=== PATIENT | female | born 1990 | race Caucasian/White ===

== ENCOUNTER 2024-04-10 09:38 | Outpatient (AMB) | payer OTHER, SELFPAY ==
[2024-04-10 09:57] VITALS: BP 132/86; PULSE 88
--- NOTE | 2024-04-10 09:57 | A.OFFVIS_ITS ---
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/ 2nd degree AV block Intake Note: New patient 2 nd degree AV Block c/o sob with most days with little exertion palpitations daily and some chest pain with stress Hospital Clinic Assistant Required: No Allergies oxcarbazepine Allergy (Mild, Verified 04/10/24 10:06) Unknown Medication List - Last Reconciled 04/10/24 by Sly Robbins MD lisinopril 10 mg PO DAILY lisinopril-hydrochlorothiazide 20-25 mg 1 tab PO DAILY metformin 500 mg PO BID testosterone cypionate 60 mg IM QWEEK venlafaxine ER 75 mg PO DAILY venlafaxine ER 150 mg PO DAILY HPI Comments Details: Q was referred here for abnormal finding on Holter monitor and they are seeking a 2nd opinion for cardiology. They have prior history of syncope, saying that this was diagnose in [place] as vasovagal syncope many years ago. They are having these symptoms of syncope since early years. No tilt-table test was performed for diagnosis. Patient describes these symptoms as feeling really unwell then having tunnel vision and then passing out associated with feeling warm and diaphoretic and has been told that they are pale. Patient was never had any seizure activity with it. Patient has been advise increase fluid intake. Currently as sleep apnea and using CPAP therapy. Recently having increasing symptoms of exertional shortness of breath which is concerning to them. Therefore had a Holter monitor which showed frequent sinus tachycardia, occasional PVCs and episodes of second-degree AV block during sleep hours. Patient was then referred to local cardiology but was not satisfied with the treatment and was looking for 2nd opinion. Since then patient continues to have exertional shortness of breath, no associated chest discomfort. Denies any orthopnea, PND, leg edema. He has not had any major syncopal episodes. Drinks about 100-120 oz of water. Has been diagnose with hypertension and recently after the Holter monitor finding metoprolol was discontinued and lisinopril was increased. They are taking a combination of lisinopril hydrochlorothiazide in the morning at 20-25 mg and 10 mg of lisinopril at nighttime. Patient is enthusiastic about losing weight. Denies any alcohol or caffeine use or any over the counter medications including stimulants. [facility] Medical History Sleep apnea Obesity HTN (hypertension) Surgical History Hx of oral surgery Family History Father No problems noted. Mother No problems noted. Social History Patient Tobacco Use Status: Former Tobacco user Review of Systems Const Denies chills, Denies daytime sleepiness, Denies fatigue, Denies fever(s), Denies frequent falls, Denies poor appetite, Denies snoring, Denies stops breathing during sleep, Denies weakness, Denies weight gain and Denies weight loss Eyes Denies loss of vision ENT Denies dizziness and Denies hearing loss Card Reports chest pain, Denies claudication, Denies leg edema, Denies lightheadedness, Reports palpitations, Reports dyspnea, Reports dyspnea on exertion and Reports orthopnea Resp Denies cough, Denies excessive phlegm production, Reports dyspnea, Reports dyspnea on exertion, Denies snoring and Denies wheezing GI Denies abdominal pain, Denies hematochezia, Denies change in bowel habits, Denies nausea and Denies vomiting Denies urinary frequency and Denies dysuria Musc Denies arthralgias, Denies muscle weakness, Denies numbness and Denies other (fr equent falls) Skin/Breast Denies nail changes and Denies rash Neuro Denies Abnormal speech present, Denies dizziness, Denies frequent falls, Denies loss of vision, Denies memory loss, Denies numbness and Denies weakness Psych Denies depression and Denies memory loss Endo Denies fatigue and Reports palpitations Sy/Lymph Reports easy bruising and Reports other (anemia) Aller/Immun Denies wheezing Physical Exam Vital Signs: Last Vital Signs Pulse 88 04/10/24 09:57 BP 132/86 04/10/24 09:57 Const General: cooperative, comfortable, no acute distress, alert and awake Nutritional Appearance: obese morbidly obese Orientation/consciousness: patient oriented x3 Limitations: no limitations HEENT Head: Yes normocephalic and Yes atraumatic Neck Neck: Yes trachea midline, Yes supple and Yes no JVD Resp Effort & Inspection: normal respiratory effort Auscultation: clear to auscultation bilaterally Cardio Jugular venous distension: no JVD Rate: regular rate Rhythm: regular rhythm Heart sounds: S1 normal heart sound present, S2 normal heart sound present, no click, no gallops, no murmurs and no rubs GI Inspection: Yes obesity Auscultation: normal bowel sounds Skin General skin exam: no rashes or lesions noted Neuro General: patient oriented x3 and no focal motor deficits Speech: No Abnormal speech present Extrem General: Yes no clubbing, cyanosis or edema Psych Appearance: grossly normal Office Procedures EKG Details: EKG shows normal sinus rhythm with sinus arrhythmia with incomplete right bundle-branch block with normal axis and normal intervals 82405-[id number], Complete Assessment & Plan Assessment & Plan (1) SOB (shortness of breath) on exertion: Code(s): R06.02 - Shortness of breath Category: Medical Plan: Shortness of breath on exertion with recent echocardiogram showing predominantly normal structure of the heart. Most likely related to restrictive pulmonary defect related to obesity. This was discussed with them. However will obtain a stress test to assess for both chronotropic competence as well as AV conduction with exercise and to assess for ischemia although less likely. This will be scheduled in near future. Will benefit significantly from weight loss program. We discussed various strategies. Consider medical weight loss program with GLP 1 antagonist (2) Syncope: Code(s): R55 - Syncope and collapse Category: Medical Plan: Longstanding history of syncope which is highly suggestive of either vasovagal syncope/related to postural orthostatic tachycardia syndrome. Given frequent sinus tachycardia POTS is likely. Mechanism of syncope needs to be determined as this will help with further treatment options. We discussed about orthostatic precautions. They are drinking enough water at this point time. Unfortunately can not prescribe any other therapy including midodrine or fludrocortisone given baseline history of hypertension. Also can not recommend increase salt intake. Potential treatment option could include Corlanor therapy. Currently competing hypertension which makes treatment very difficult I would discontinue hydrochlorothiazide which can potentiate both orthostatic as well as vasovagal syncope. Aggressive weight loss program needs to be pursued. Continue CPAP therapy. (3) Second degree AV block: Code(s): I44.1 - Atrioventricular block, second degree Category: Medical Plan: Second-degree AV block during sleep hours. Most likely related to inadequate CPAP therapy. Obtain ETT as above. Also metoprolol was discontinued and will follow-up 14 day Holter monitor to see if there is any significant improvement in her second-degree AV block. I do not think there is indication for pacemaker at this point time. Would obtain a CPAP titration study for adequacy of sleep apnea treatment. Will follow up in 2 months time, sooner p.r.n.. Orders: Orders CA stress test Today R06.02 - Shortness of breath RT PSG in-lab sleep titration Today G47.30 - Sleep apnea, unspecified ECG Tilt Table Test Today R55 - Syncope and collapse ECG 14 day holter monitor Today I44.1 - Atrioventricular block, second degree Medications: New lisinopril 20 mg PO DAILY 30 tabs 5RF Coding Level of Care Code New Pt Level 4 (74461) Complex EM visit Add On G2211 Diagnoses SOB (shortness of breath) on exertion R06.02 Syncope R55 Second degree AV block I44.1 CPT Codes EKG - CPT: 35535-[id number], Complete ([id number])
--- OUTSIDE RECORDS SUMMARY | 2024-04-15 07:04 | XMS_ITS ---
Author Organization [facility] Address [address] [place] [id number] Care Team Providers Care Correctional Probation Officer Name Role Phone Bahman Mtz Unavailable [phone] Allergies Allergen (clinical drug ingredient) Drug/Non Drug Allergy documented on EMR Reaction Allergy Type Onset Date Status Banana Flavor Unknown Drug Allergy Act oliver REASON FOR VISIT A1c Social History Sex Assigned At : Social History Observation Description Sex Assigned At Female Encounters Encounter Location Date Provider Diagnosis [address] [id number] 02/12/2024 Bahman Mtz Plan Of Treatment No Information Progress Notes * Gisele MCKEONDOB:1990 (33 yo F)Acc No.[id number]:02/12/2024 Patient:?Gislee MCKEON :1990???Age:33 Y???Sex:Female Address:[address] [place] [id number] Subjective: * Chief Complaints: * ???A1c * Medical History:? * Surgical History:? * Hospitalization/Major Diagno stic Procedure:? * Medications:? * Allergies:?Banana Flavor Objective: * Vitals:? * Physical Examination:? Assessment: Plan: * Treatment: * Procedure Codes:? * true * Date:? Generated for Liui zandra/Fahannag/eTransmitting on:?04/15/2024 07:04 AM EST
--- OUTSIDE RECORDS SUMMARY | 2024-04-15 07:04 | XMS_ITS ---
Author Organization [facility] Address [address] [place] [id number] Care Team Providers Care Acid Crane Operator Name Role Phone Bahman Mtz Unavailable [phone] Allergies Allergen (clinical drug ingredient) Drug/Non Drug Allergy documented on EMR Reaction Allergy Type Onset Date Status Banana Flavor Unknown Drug Allergy Act oliver REASON FOR VISIT GA Follow Medications Medication SIG (Take, Route, Frequency, Duration) Notes Start Date End Date Status [facility] Alcohol Prep Pads 70 % as directed transdermal clean vial and skin prior to injection weekly for 90 days 01/11/2023 Active Propranolol HCl 10 MG 1 tablet Orally On ce a day for 30 day(s) 40mg/day Not-Taking busPIRone HCl 15 MG 1 tablet Orally Twice a day Not-Taking Estradiol 10 MCG 1 tablet Vaginal Two times a Week for 90 days 02/25/2024 Active Testosterone Cypionate 200 MG/ML 0.4 ML Subcutaneous weekly 10/24/2023 Active hydroCHLOROthiazide 12.5 MG 1 capsule in the morning Orally Once a day for 30 day(s) Active Effexor XR 150 MG 1 capsule with food Orally Once a day for 30 day(s) 225mg per day Active BD Luer-Ganga Syringe 25G X 5/8 1 ML as directed SQ Once weekly as directed for 90 01/11/2023 Active BD [employer] - as directed as directed dispose needles once weekly for 90 days 01/11/2023 Active Wellbutrin 150 Active BD Disp Raritan 21G X 1-1/2 as directed for drawing up medication once weekly for drawing up medication once weekly for 90 days 01/11/2023 Active BD Luer-Ganga Syringe 25G X 5/8 1 ML as directed for weekly subcutaneous medication administration for 90 days 04/18/2023 Active Diclofenac Sodium 50 MG 1 tablet as need ed Orally Twice a day Active Lisinopril Active Venlafaxine HCl Acti ve Pregabalin 25 MG 1 capsule Orally Once a day 75mg 2 x day Active Metoprolol Succinate 25 MG 1 capsule Orally Once a day Active metFORMIN HCl 500 MG 1 tablet with a nish l Orally Once a day Active Social History Sex Assigned At : Social History Observation Description Sex Assigned At Female Vital Signs Blood pressure systolic 20 mm Hg 02/25/20 24 Blood pressure diastolic 10 mm Hg 024 Height 20 in 02/25/2024 Weight 10 lbs 02/25/2024 BMI 17.58 kg/m2 02/25/2024 Encounters Encounter Location Date Provider Diagnosis [facility] [address] [place], [place] [phone] 02/25/2024 Bahman Mtz Other gender identit y disorders F64.8 Assessments Encounter Date Diagnosis (ICD Code) Assessment Notes Treatment Notes Treatment Clinical Notes Section Notes 02/25/2024 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 3 months after dose change did med education for estradiol reviewed labs with patient and discussed importance of continuing to follow up with PCP for hyperglycemia/pr ediabetes, HLD and other concerns, client on metformin for prediabetes now. Spent 30 minutes doing the following: Chart Prep Obtaining/reviewi ng history Performing medically necessary exam Counseling/Coordi [facility] of Care Documenting the visit Educating the patient Ordering medication/test/p rocedures Interpretation of test performed by others Communication of test results Established Patient: [id number] 30 Minutes Plan Of Treatment Medication Medication Name Sig Start Date Stop Date Notes Estradiol 10 MCG 1 tablet Vaginal Two times a Week for 90 days 02/25/2024 Testosterone Cypionate 200 MG/ML 0.4 ML Subcutaneous weekly 10/24/2023 Treatment Notes Assessment Notes Other gender identity disorders will call when needs testosterone refill will continue current dose for now but ok to increase to 0.5 mL testosterone if desired, and if does so call to schedule f/u approx. 3 months after dose change did med education for estradiol reviewed labs with patient and discussed importance of continuing to follow up with PCP for hyperglycemia/prediabetes, HLD and other concerns, client on metformin for prediabetes now. Next Appt Details Follow Up: 1 Year,Glenn delaney n: f/u 1 year or 3 months after any dose increase Progress Notes * Gisele MCKEONDOB:1990 (33 yo F)Acc No.[id number]:02/25/2024 Patient:?Gisele MCKEON Provider:?Bahman Mtz CNM, ONEIL :1990???Age:33 Y???Sex:Female D ate:02/25/2024 Address:[address] [place], [place] [id number] Subjective: * Chief Complaints: * ???GAH Follow * HPI: ???Visit Narrative:?Reason for the visit:?GAH Follow Up.?Q is doing well, on a medical leave re. mental health concerns. Pending cardiology work up for concern for dysautonomia/POTS. happy overall on current dose. Amenorrhea, rare cramping thinks might be related to cycle. no spotting. Might be interested in a dose increase in the future. had recent labs. saw pelvic floor PT for back pain which was helpful, they recommended vaginal estradiol to prevent/treat tissue atrophy for which client currently asymptomatic (no genital irritation, pain, dysuria,etc.) and client would like to start this. last labs were a peak level. * Medical History:? 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 control:?sex does not risk .?Last menstrual period:?02/18/22.?Last pap smear date:?2021.?Menarche: ?Past the age of menarche:?Yes ?Age of menarche:?11 ???Periods:?Amen. with T.? * OB History:?Total pregnancies:?0.? * Surgical History:?Denies Pas t Surgical History * Hospitalization/Major Diagno stic Procedure:?Denies Past Hospitalization * Family History:? HBP- mom Paternal side- unknown Family hx of BR CA. * Social History:?Food Access:?Food Access?The Client's current access to food is?Secure Food Access ???Housing:?Housing?The client's current living situation is:?stable housing ???Relationships:?Relationships?Has the client experienced any of the following:?Client has never experienced harmful relationships ???Human Trafficking:?Human Trafficking?Experienced:?No ???Tobacco Use:?Tobacco Use?Do you/have you used tobacco??Yes, in the past ?When did you quit??/ quit a few years ago ???Drugs/Alcohol:?Drug/Alcohol Use?Do you or have you used drugs??Yes, currently ?By what route are you taking drugs? Please check all that apply:?Smoking ?Which drug(s) do you smoke??Marijuana, Other (please specify in notes) mushrooms ?Do you or have you used alcohol??Yes, currently not often ???Counseling Provided:?Counseling Provided?The client was counseled on the following topics at this visit:?Gender Affirming Hormones ?Please indicate the length of time, in minutes, that counseling was provided.?5 ?Counseling Was Provided By:?alma * Medications:?TakingMetoprolo l Succinate 25 MG Capsule ER 24 Hour Sprinkle 1 capsule Orally Once a day metFORMIN HCl 500 MG Tablet 1 tablet with a meal Orally Once a day Pregabalin 25 MG Capsule 1 capsule Orally Once a day , Notes to Pharmacist: 75mg 2 x dayBD Disp Raritan 21G X 1-1/2 Miscellaneous as directed for drawing up medication once weekly for drawing up medication once weekly BD Luer-Ganga Syringe 25G X 5/8 1 ML Miscellaneous as directed for weekly subcutaneous medication administration Diclofenac Sodium 50 MG Tablet Delayed Release 1 tablet as needed Orally Twice a day Lisinopril Venlafaxine HCl Wellbutrin , Notes to Pharmacist: 150hydroCHLOROthiazide 12.5 MG Capsule 1 capsule in the morning Orally Once a day Effexor XR 150 MG Capsule Extended Release 24 Hour 1 capsule with food Orally Once a day , Notes to Pharmacist: 225mg per dayBD Luer-Ganga Syringe 25G X 5/8 1 ML Miscellaneous as directed SQ Once weekly as directed BD [employer] - Miscellaneous as directed as directed dispose needles once weekly [facility] Alcohol Prep Pads 70 % Pad as directed transdermal clean vial and skin prior to injection weekly Testosterone Cypionate 200 MG/ML Solution 0.4 ML Subcutaneous weekly Taking Metoprolol Succinate 25 MG Capsule ER 24 Hour Sprinkle 1 capsule Orally Once a day Taking metFORMIN HCl 500 MG Tablet 1 tablet with a meal Orally Once a day Taking Pregabalin 25 MG Capsule 1 capsule Orally Once a day , Notes to Pharmacist: 75mg 2 x dayTaking BD Disp Raritan 21G X 1-1/2 Miscellaneous as directed for drawing up medication once weekly for drawing up medication once weekly Taking BD Luer-Ganga Syringe 25G X 5/8 1 ML Miscellaneous as directed for weekly subcutaneous medication administration Taking Diclofenac Sodium 50 MG Tablet Delayed Release 1 tablet as needed Orally Twice a day Taking Lisinopril Taking Venlafaxine HCl Taking Wellbutrin , Notes to Pharmacist: 150Taking hydroCHLOROthiazide 12.5 MG Capsule 1 capsule in the morning Orally Once a day Taking Effexor XR 150 MG Capsule Extended Release 24 Hour 1 capsule with food Orally Once a day , Notes to Pharmacist: 225mg per dayTaking BD Luer-Ganga Syringe 25G X 5/8 1 ML Miscellaneous as directed SQ Once weekly as directed Taking BD [employer] - Miscellaneous as directed as directed dispose needles once weekly Taking [facility]S Alcohol Prep Pads 70 % Pad as directed transdermal clean vial and skin prior to injection weekly Taking Testosterone Cypionate 200 MG/ML Solution 0.4 ML Subcutaneous weekly Not-Taking/PRNPropranolol HCl 10 MG Tablet 1 tablet Orally Once a day , Notes to Pharmacist: 40mg/daybusPIRone HCl 15 MG Tablet 1 tablet Orally Twice a day Medication List reviewed and reconciled with the patientNot-Taking/PRN Propranolol HCl 10 MG Tablet 1 tablet Orally Once a day , Notes to Pharmacist: 40mg/dayNot-Taking/PRN busPIRone HCl 15 MG Tablet 1 tablet Orally Twice a day Medication List reviewed and reconciled with the patient * Allergies:?Banana Flavorno[A llergies Verified] Objective: * Vitals:?BP:20/10mm Hg, Ht: 2 0 in, Wt:10lbs, BMI:17.58Index, Ht-cm: 50.8, Wt-k.54. * Physical Examination:?in no apparent distress audio only telehealth alert and oriented x 3. Assessment: * Assessment: 1.?Other gender identity dis orders - F64.8 (Primary)??? Spent 30 minutes doing the f ollowing: Chart Prep Obtaining/reviewing history Performing medically necessary exam Counseling/Coordination of Care Documenting the visit Educating the patient Ordering medication/test/procedures Interpretation of test performed by others Communication of test results Established Patient: 95046 30 Minutes Plan: * Treatment: * Procedure Codes:? * Follow Up:?1 Year,prn (Reaso n: f/u 1 year or 3 months after any dose increase) * Billing Information: * Visit Code:? 34372 Existing - Medium Complexity (IN USE). * Procedure Codes:? * Sign off status: Completed true * Provider:?Bahman Mtz CNM, ONEIL Date:?1 Generated for Nico de paz/Jcainto/Henny on:?04/15/2024 07:04 AM EST History and Physical Notes * HPI (History of Present Illness) Category Sub-Category Detail Notes Category Not es Visit Narrative Reason for the visit: [facility] Follow Up Q is doing well, on a medical leave re. mental health concerns. Pending cardiology work up for concern for dysautonomia/POTS. happy overall on current dose. Amenorrhea, rare cramping thinks might be related to cycle. no spotting. Might be interested in a dose increase in the future. had recent labs. saw pelvic floor PT for back pain which was helpful, they recommended vaginal estradiol to prevent/treat tissue atrophy for which client currently asymptomatic (no genital irritation, pain, dysuria,etc.) and client would like to start this. last labs were a peak level. Physical Examination Category Sub-Category Detail Notes Section Note s in no apparent distress audio only telehealth alert and oriented x 3
--- OUTSIDE RECORDS SUMMARY | 2024-04-15 07:05 | XMS_ITS | Patient Health Record ---
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 No serum gel received. HCV antibody alone does not differentiate between previously resolved infection and active infection. Equivocal and Reactive HCV antibody results should be followed up with an HCV RNA test to support the diagnosis of active HCV infection. Ct/GC INDIRA, Pharyngeal-[id number] Reviewed date:11/04/2023 05:50:50 PM Interpretation:negative/negative Performing Lab:[facility] [place], [address], [address], [place], Phone - [phone], Director [facility]/Report: Clinical Information:SRC:urine C. trachomatis, INDIRA, Pharyn Negative Negative N. gonorrhoeae, INDIRA, Pharyn Negative Negative Trich vag by INDIRA-[id number] Reviewed date:11/04/2023 05:49:16 PM Interpretation:negative Performing Lab:[facility] [place], [address], [address], [place], Phone - [phone], Director - [facility] Notes/Report: Clinical Information:SRC:urine Trich vag by INDIRA Negative Negative Chlamydia/GC Amplification-1 91128 Reviewed date:11/04/2023 05:50:37 PM Interpretation:negative/negative Performing Lab:[facility] [place], [address], [address], [place], Phone - [phone], Director [facility] Notes/Report: Clinical Information:SRC:urine Chlamydia trachomatis, INDIRA Negative Negative Neisseria gonorrhoeae, INDIRA Negative Negative HIV Ab/p24 Ag with Reflex-08 3935 Reviewed date:11/04/2023 05:54:16 PM Interpretation:TNP Performing Lab:[facility], [address] [place] [address], Phone - [phone], [facility] Notes/Report: Clinical Information:SRC:urine HIV Ab/p24 Ag Screen TNP Test no t performed. No serum gel received. T pallidum Screening [place] -[id number] Reviewed date:11/04/2023 05:53:35 PM Interpretation:TNP [facility], [address] [place] [address], Phone - [phone], Director O[place] PARaghu Notes/Report: Clinical Information:SRC:urine T pallidum Antibodies TNP Test n ot performed. No serum gel received. Testosterone, Total, LC/MS-0 28539 Reviewed date:11/04/2023 05:54:31 PM Interpretation: Performing Lab:[facility] [place], [address] [place] [address], Phone - [phone], Director Preethi Roth Notes/Report: Clinical Information:SRC:urine Testosterone, Total, LC/MS TNP T est not performed. No serum gel received. Hematocrit-[id number] Reviewed date:11/04/2023 05:54:37 PM Interpretation: Performing Lab:[facility], [address] [place] [address], Phone - [phone], [facility] Notes/Report: Clinical Information:SRC:urine Hematocrit TNP Test not perfor med. No lavender top tube submitted. No Lavender Received TNP Test not performed. No lavender top tube submitted. TEST: [id number] Hemoglobin A1c 120569 Hemoglobin 867345 Hematocrit No Serum Gel Received TNP Test not performed. No serum gel received. TEST: [id number] Testosterone, Total, LC/MS 478049 T pallidum Screening [place] 679859 HIV Ab/p24 Ag with Reflex [id number] HCV Antibody Hemoglobin-289402 Reviewed date:11/04/2023 05:54:33 PM Interpretation: Performing Lab:[facility] [address], Phone - [phone], Director - [place] Notes/Report: Clinical Information:SRC:urine Hemoglobin TNP Test not perfor med. No lavender top tube submitted. Hemoglobin B0f-[id number] Reviewed date:11/04/2023 05:52:52 PM Interpretation:TNP Performing Lab:[facility], Phone - [phone], Director - [place] Notes/Report: Clinical Information:SRC:urine Hemoglobin A1c TNP Test not performed. No lavender top tube submitted. . Prediabetes: 5.7 - 6.4 Diabetes: >6.4 Glycemic control for adults with diabetes: <7.0 Hematocrit-[id number] Reviewed date:02/12/2024 05:14:29 PM Interpretation:47.1 Performing Lab:[facility], [address] [place] [address], Phone - [phone], Director - [place] Notes/Report: Hematocrit 47.1 34.0-46.6 % Hemoglobin-[id number] Reviewed date:02/12/2024 05:14:47 PM Interpretation:15.0 Performing Lab:[facility] [address], Phone - [phone], Director - [place] Notes/Report: Hemoglobin 15.0 11.1-15.9 g/dL Hemoglobin A1c Reviewed date:02/12/2024 05:16:33 PM Interpretation:6.2 Performing Lab:[facility], [address] [place] [address], Phone - [phone], Director - Chandan Notes/Report: Hemoglobin A1c 6.2 Reference Range: [place] Diabetes Association (ADA) Guidelines: <5.7: Decreased risk for diabetes 5.7 - 6.4: Increased risk for diabetes >6.4: Ongoing Hyperglycemia of any cause <7.0: Glycemic control for adults with diabetes Estimated Average Glucose 131 Testosterone, Total, LC/MS-0 38466 Reviewed date:02/12/2024 05:16:43 PM Interpretation:252 Performing Lab:[facility], [facility], Phone - [phone], Director - [facility] Notes/Report: Testosterone, Total, LC/MS 252 This test was developed and its performance characteristics determined by 5 CUPS and some sugar. It has not been cleared or approved by the Food and Drug Administration. Reference Range: Adult Females Premenopausal 10 - 55 Postmenopausal 7 - 40 HCV Antibody-[id number] Reviewed date:02/21/2024 12:13:13 PM Interpretation:negative Performing Lab:[facility] [place], [address], [address], [place], Phone - [phone], Director - [facility] Notes/Report: Hep C Virus Ab Non Reactive Non Reactive HCV antibody alone does not differentiate between previously resolved infection and active infection. Equivocal and Reactive HCV antibody results should be followed up with an HCV RNA test to support the diagnosis of active HCV infection. T pallidum Screening [place] -[id number] Reviewed date:02/12/2024 05:20:17 PM Interpretation:negative Performing Lab:[facility], [address] [place] [address], Phone - [phone], Director - [facility] Notes/Report: T pallidum Antibodies Non Reactive Non Reactive HIV Ab/p24 Ag with Reflex-08 3935 Reviewed date:02/21/2024 12:14:37 PM Interpretation:negative Performing Lab:[facility] [place], [address] [facility], Phone - [phone], Director - [facility] Notes/Report: HIV Ab/p24 Ag Screen Non Reactive Non Reactive HIV-1/HIV-2 antibodies and HIV-1 p24 antigen were NOT detected. There is no laboratory evidence of HIV infection. HIV Negative Reason For Referral No Information Medications Medication SIG (Take, Route, Frequency, Duration) Notes Start Date End Date Status Pregabalin 25 MG 1 capsule Orally Once a day 75mg 2 x day Active [facility] Alcohol Prep Pads 70 % as directed transdermal clean vial and skin prior to injection weekly for 90 days 01/11/2023 Active BD Disp [place] 21G X 1-1/2 as directed for drawing up medication once weekly for drawing up medication once weekly for 90 days 01/11/2023 Active BD Luer-Ganga Syringe 25G X 5/8 1 ML as directed for weekly subcutaneous medication administration for 90 days 04/18/2023 Active Propranolol HCl 10 MG 1 tablet Orally On ce a day for 30 day(s) 40mg/day Not-Taking Diclofenac Sodium 50 MG 1 tablet as need ed Orally Twice a day Active hydroCHLOROthiazide 12.5 MG 1 capsule in the morning Orally Once a day for 30 day(s) Active Effexor XR 150 MG 1 capsule with food Orally Once a day for 30 day(s) 225mg per day Active Metoprolol Succinate 25 MG 1 capsule Orally Once a day Active BD Luer-Ganga Syringe 25G X 5/8 1 ML as directed SQ Once weekly as directed for 90 01/11/2023 Active metFORMIN HCl 500 MG 1 tablet with a nish l Orally Once a day Active BD [employer] - as directed as directed dispose needles once weekly for 90 days 01/11/2023 Active busPIRone HCl 15 MG 1 tablet Orally Twice a day Not-Taking Estradiol 10 MCG 1 tablet Vaginal Two times a Week for 90 days 02/25/2024 Active Lisinopril Active Venlafaxine HCl Acti ve Testosterone Cypionate 200 MG/ML 0.4 ML Subcutaneous weekly 10/24/2023 Active Wellbutrin 150 Active Social History Sex Assigned At : Social History Observation Description Sex Assigned At Female Problems Problem Type SNOMED Code ICD Code Onset Dates Problem Status W/U Status Risk Notes Problem 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) Other gender identity disorders (F64.8) Active confirmed Problem Gender identity disorder (77780948) Gender identity disorder, 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 Vital Signs Blood pressure diastolic 10 mm Hg 02/25/2024 Height 20 in 02/25/2024 Blood pressure systolic 20 mm Hg 02/25/2024 Weight 10 lbs 02/25/2024 BMI 17.58 kg/m2 02/25/2024 Encounters Encounter Location Date Provider Diagnosis [facility] [address] [facility] [address] [place] [id number] 04/18/2023 Janay Ramirez Gender identity disorder, unspecified F64.9 and Hormone replacement therapy Z79.890 [facility] [address] [place] [address] [place] [address] [id number] 10/11/2023 Bahman Bibi Endocrine disorder, unspecified E34.9 ; HIV Screening Z11.4 ; STI Screening Z11.3 ; Contact with and (suspected) exposure to potentially hazardous body fluids Z77.21 ; Chlamydia Screening Z11.3 and Other problems related to lifestyle Z72.89 [facility] [address] [place], [place] [id number] 02/25/2024 Bahman Mtz Other gender identity disorders F64.[address] [id number] 04/18/2023 Janay Ramirez [facility] [address] [facility] [address] [place], [place] [id number] 10/24/2023 Bahman Mtz [address] [id number] 11/04/2023 Bahman Mtz Hormone replacement therapy Z79.890 ; Encounter for screening for other viral diseases Z11.59 ; STI Screening Z11.3 and Endocrine disorder, unspecified E34.[address] [id number] 02/12/2024 Bahman Mtz Assessments Encounter Date Diagnosis (ICD Code) Assessment Notes Treatment Notes Treatment Clinical Notes Section Notes 04/18/2023 Gender identity disorder, unspecified (ICD-10 - F64.9) Need 2 out of 3 Sections from A-C Section B) Data (at least one of the following categories in this section) Category 1: (Choose 2 of the following): Order unique tests Section C) Risk Document low risk of morbidity/mortali ty 10/11/2023 Endocrine disorder, unspecified (ICD-10 - E34.9) 10/11/2023 HIV Screening (ICD-10 - Z11.4) 11/04/2023 Hormone replacement therapy (ICD-10 - Z79.890) 02/25/2024 Other gender identity disorders (ICD-10 - [...] continuing to follow up with PCP for hyperglycemia/p rediabetes, HLD and other concerns, client on metformin for prediabetes now. Spent 30 minutes doing the following: Chart Prep Obtaining/reviewi ng history Performing medically necessary exam Counseling/Coordi nation of Care Documenting the visit Educating the patient Ordering medication/test/p rocedures Interpretation of test performed by others Communication of test results Established Patient: 63531 30 Minutes 11/04/2023 Encounter for screening for other viral diseases (ICD-10 - Z11.59) 10/11/2023 STI Screening (ICD-10 - Z11.3) 04/18/2023 Hormone replacement therapy (ICD-10 - Z79.890) Discussed follow up options, pt prefers routine f/u visit in 6 mos. Will transition to yearly labs now so no routine labs needed at follow up appointment. Advised to monitor site reactions and call for evaluation if symptoms persist or worsen. Need 2 out of 3 Sections from A-C Section B) Data (at least one of the following categories in this section) Category 1: (Choose 2 of the following): Order unique tests Section C) Risk Document low risk of morbidity/mortali ty 10/11/2023 Contact with and (suspected) exposure to potentially hazardous body fluids (ICD-10 - Z77.21) 11/04/2023 STI Screening (ICD-10 - Z11.3) 10/11/2023 Chlamydia Screening (ICD-10 - Z11.3) 11/04/2023 Endocrine disorder, unspecified (ICD-10 - E34.9) 10/11/2023 Other problems related to lifestyle (ICD-10 - Z72.89) Plan Of Treatment Pending Test Test Name Order Date ALT (SGPT) 03/20/2022 AST (SGOT) 03/20/2022 HEMOGLOBIN AND HEMATOCRIT 03/20/2022 TESTOSTERONE, TOTAL (MALES > 15 YRS) Insurance Providers Payer Name Payer Address Payer Phone Subscriber Number Group Number Insured Name Patient Relationship to Insured Coverage Start Date Coverage End Date [employer] ATTN [employer] CLAIMS DEPT [address] [facility], [place] [address] [id number] Gisele Wright Self - patient is the insured Medical (General) History Medical History History ICD Code Mental Health Anxiety and Depression- me ds and therapy. Feeling stable Breast lump- imaging to be done . Benign per clt CPTSD HBP- newly on meds as of Abn HgbA1C 5.9%, Abn lipid panel- PCP to follow up Back pain as of 10/15/2022, wondering if related to weight distribution Diabetes Weight concerns Migraines Surgical History Surgery Date(Month/Year)
--- OUTSIDE RECORDS SUMMARY | 2024-04-15 07:05 | XMS_ITS ---
Author Organization [facility] Address [address] [place] [phone] Care Team Providers Care Patient Financial Counselor Name Role Phone Bahman Mtz Unavailable [phone] REASON FOR VISIT lab follow up Social History Sex Assigned At : Social History Observation Description Sex Assigned At Female Encounters Encounter Location Date Provider Diagnosis [address] [id number] 11/04/2023 Bahman Mtz Hormone replacement therapy Z79.890 ; Encounter for screening for other viral diseases Z11.59 ; STI Screening Z11.3 and Endocrine disorder, unspecified E34.9 Assessments Encounter Date Diagnosis (ICD Code) Assessment Notes Treatment Notes Treatment Clinical Notes Section Notes 11/04/2023 Hormone replacement therapy (ICD-10 - Z79.890) 11/04/2023 Encounter for screening for other viral diseases (ICD-10 - Z11.59) 11/04/2023 STI Screening (ICD-10 - Z11.3) 11/04/2023 Endocrine disorder, unspecified (ICD-10 - E34.9) Plan Of Treatment No Information Progress Notes * MIKEAgueda DAVENPORTcelesteDOB:1990 (33 yo F)Acc No.[id number]:11/04/2023 Patient:?Gisele MCKEON :1990???Age:33 Y???Sex:Female Address:[address] [place] [place] [address], [id number] Subjective: * Chief Complaints: * ???Lab follow up * Medical History:? * Surgical History:? * Hospitalization/Major Diagno stic Procedure:? * Medications:? Objective: * Vitals:? * Physical Examination:? Assessment: * Assessment: 1.?Hormone replacement thera py - Z79.890???2.?Encounter for screening for other viral diseases - Z11.59???3.?STI Screening - Z11.3???4.?Endocrine disorder, unspecified - E34.9??? Plan: * Treatment: ?LAB: Hemoglobin-898097 (Ordered for 11/05/2023) (Collection Date & Time - 01/27/2024 12:41 PM)* normal on testosterone ?LAB: Hematocrit-469403 (Ordered for 11/05/2023) (Collection Date & Time - 01/27/2024 12:41 PM)* normal on testosterone 2.?Encounter for screening for other viral diseases?LAB: HIV Ab/p24 Ag with Reflex-656380 (Ordered for 11/05/2023) (Collection Date & Time - 01/27/2024 12:41 PM) ?LAB: T pallidum Screening [place]-754959 (Ordered for 11/05/2023) (Collection Date & Time - 01/27/2024 12:41 PM) ?LAB: HCV Antibody-[id number] (Ordered for 11/05/2023) (Collection Date & Time - 01/27/2024 12:41 PM) ?LAB: Testosterone, Total, LC/MS-262388 (Ordered for 11/05/2023) (Collection Date & Time - 01/27/2024 12:41 PM) ?LAB: Hemoglobin A1c (Ordered for 11/05/2023) (Collection Date & Time - 01/27/2024 12:41 PM)* prediabetes range/elevated b lood sugar, will call to discuss ?LAB: Hemoglobin-282981 (Ordered for 11/05/2023) (Collection Date & Time - 01/27/2024 12:41 PM)* normal on testosterone ?LAB: Hematocrit-025186 (Ordered for 11/05/2023) (Collection Date & Time - 01/27/2024 12:41 PM)* normal on testosterone 3.?STI Screening?LAB: HIV Ab/p24 Ag with Reflex-[id number] (Ordered for 11/05/2023) (Collection Date & Time - 01/27/2024 12:41 PM) ?LAB: T pallidum Screening [place]-943363 (Ordered for 11/05/2023) (Collection Date & Time - 01/27/2024 12:41 PM) ?LAB: HCV Antibody-712709 (Ordered for 11/05/2023) (Collection Date & Time - 01/27/2024 12:41 PM) ?LAB: Testosterone, Total, LC/MS-092148 (Ordered for 11/05/2023) (Collection Date & Time - 01/27/2024 12:41 PM) ?LAB: Hemoglobin A1c (Ordered for 11/05/2023) (Collection Date & Time - 01/27/2024 12:41 PM)* prediabetes range/elevated b lood sugar, will call to discuss ?LAB: Hemoglobin-988117 (Ordered for 11/05/2023) (Collection Date & Time - 01/27/2024 12:41 PM)* normal on testosterone ?LAB: Hematocrit-268380 (Ordered for 11/05/2023) (Collection Date & Time - 01/27/2024 12:41 PM)* normal on testosterone 4.?Endocrine disorder, unspecified?LAB: HIV Ab/p24 Ag with Reflex-561493 (Ordered for 11/05/2023) (Collection Date & Time - 01/27/2024 12:41 PM) ?LAB: T pallidum Screening [place]-198225 (Ordered for 11/05/2023) (Collection Date & Time - 01/27/2024 12:41 PM) ?LAB: HCV Antibody-154040 (Ordered for 11/05/2023) (Collection Date & Time - 01/27/2024 12:41 PM) ?LAB: Testosterone, Total, LC/MS-704296 (Ordered for 11/05/2023) (Collection Date & Time - 01/27/2024 12:41 PM) ?LAB: Hemoglobin A1c (Ordered for 11/05/2023) (Collection Date & Time - 01/27/2024 12:41 PM)* prediabetes range/elevated b lood sugar, will call to discuss ?LAB: Hemoglobin-377221 (Ordered for 11/05/2023) (Collection Date & Time - 01/27/2024 12:41 PM)* normal on testosterone ?LAB: Hematocrit-561853 (Ordered for 11/05/2023) (Collection Date & Time - 01/27/2024 12:41 PM)* normal on testosterone * Procedure Codes:? * true * Date:? Generated for Nico de paz/Jacinto/Breasmitting on:?04/15/2024 07:04 AM EST
== END 2024-04-10 10:41 | disposition home or self-care (01) ==
PROVIDERS: PCP Family Medicine; Visit Provider Internal Medicine Cardiovascular Disease
DX: R06.02 Shortness of breath (principal); R55 Syncope and collapse; I44.1 Atrioventricular block, second degree
CPT/HCPCS: 93010; 99204; G2211

== ENCOUNTER → 2024-04-10 09:38 | Outpatient (BNVA) | payer OTHER, SELFPAY | PROVIDERS: PCP Family Medicine; Visit Provider Internal Medicine Cardiovascular Disease | DX: I44.1 Atrioventricular block, second degree (principal); I10 Essential (primary) hypertension; R06.02 Shortness of breath; R55 Syncope and collapse; G47.30 Sleep apnea, unspecified | CPT/HCPCS: 93005 ==

== ENCOUNTER → 2024-04-27 10:16 | Outpatient (REF) | payer OTHER, SELFPAY ==
--- NOTE | 2024-04-27 12:15 | CA_ITS ---
Acquisition Time: 2024-04-27 10:32:03 Total Exercise Time: 00:05:13 Test Indications: SECOND DEGREE AV BLOCK, SOB Medications: SEE H Protocol: CROW Max HR: 169 BPM 90% of Pred: 187 BPM Max BP: 190/040 mmHG Max Work Load: 7.0 METS Exercise Stress Test with exercise 5 mins 13 secs of Crow Protocol, achieving 87% MPHR, with reports of severe SOB, no chest discomfort, without any arrythmias, with normotensive response to exercise. Without EKG changes meeting criteria for ischemia. In recovery, breathing returned to baseline slowly. Test reviewed with Dr. Maldonado. Test performed by Trina Lobo NP and Rivas Pisano NP Referred By: Sly Robbins Overread By: TRINA LOBO
== END ==
LOC: HO.CARD 10:16
PROVIDERS: PCP Family Medicine; Visit Provider Internal Medicine Cardiovascular Disease
DX: R06.02 Shortness of breath (principal)
CPT/HCPCS: 93017

== ENCOUNTER → 2024-04-27 12:15 | Outpatient (BNV) | payer OTHER, SELFPAY | PROVIDERS: PCP Family Medicine; Visit Provider Nurse Practitioner Family | DX: R06.02 Shortness of breath (principal); I44.1 Atrioventricular block, second degree | CPT/HCPCS: 93016; 93018 ==

== ENCOUNTER → 2024-04-30 20:30 | Outpatient (REF) | payer OTHER, SELFPAY | LOC: HO.SL 20:30 | PROVIDERS: PCP Family Medicine; Visit Provider Internal Medicine Cardiovascular Disease | DX: G47.33 Obstructive sleep apnea (adult) (pediatric) (principal); G47.61 Periodic limb movement disorder | CPT/HCPCS: 95811 ==

== ENCOUNTER → 2024-04-30 20:56 | Outpatient (BNV) | payer OTHER, SELFPAY | PROVIDERS: PCP Family Medicine; Visit Provider Psychiatry & Neurology Neurology | DX: G47.33 Obstructive sleep apnea (adult) (pediatric) (principal) | CPT/HCPCS: 95811 ==

== ENCOUNTER → 2024-05-01 07:13 | Outpatient (REF) | payer OTHER, SELFPAY | LOC: HO.CARD 07:13 | PROVIDERS: PCP Family Medicine; Visit Provider Internal Medicine Cardiovascular Disease | DX: I44.1 Atrioventricular block, second degree (principal) | CPT/HCPCS: 93246 ==

== ENCOUNTER → 2024-05-01 07:16 | Outpatient (BNV) | payer OTHER, SELFPAY | PROVIDERS: PCP Family Medicine; Visit Provider Internal Medicine Cardiovascular Disease | DX: I44.1 Atrioventricular block, second degree (principal) | CPT/HCPCS: 93244 ==

== ENCOUNTER 2024-07-07 12:22 | Outpatient (AMB) | payer OTHER, SELFPAY ==
[2024-07-07 12:32] VITALS: BP 130/80; PULSE 68
--- NOTE | 2024-07-07 12:32 | A.OFFVIS_ITS ---
Vital Signs 07/07/24 12:32 Height 5 ft 6 in BMI Reason not done Patient refused/unable BP 130/80 Blood Pressure Location Lt brachial Position Sitting Pulse 68 Intake Visit Reasons: 3 mth-tilt,holter,ett Intake Note: 3 month follow-up holter, ett and tilt table test feeling the same c/o palpitations and dizziness Chief [employer] Required: No Allergies oxcarbazepine Allergy (Mild, Verified 04/10/24 10:06) Unknown Medication List - Last Reconciled 07/07/24 by Sly Robbins MD aripiprazole (Abilify) 5 mg PO DAILY lisinopril 10 mg PO DAILY lisinopril 20 mg PO DAILY metformin 500 mg PO BID testosterone cypionate 60 mg IM QWEEK venlafaxine ER 75 mg PO DAILY venlafaxine ER 150 mg PO DAILY HPI Comments Details: Q comes for follow-up. He says stress test was within normal limits although with reduced exercise capacity. T[facility]table test done at [facility] did not show any evidence of neurocardiogenic syncope. However there was no provocative m easures performed. Holter monitor showed baseline normal sinus rhythm average heart rate of 81 beats per minute without significant tachycardia. Patient marked the counter 3 times which correlated with sinus rhythm. 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 Patient said that they were awake at that time. Patient continues to be very emotional and says that continues to have symptoms of rapid heart rate climbing a flight of stairs and also episodes of syncope. Very bothered by the symptoms and says that can not exercise. Has increased fluid [facility] Medical History Sleep apnea Obesity HTN (hypertension) Surgical History Hx of oral surgery Family History Father No problems noted. Mother No problems noted. Social History Patient Tobacco Use Status: Former Tobacco user Review of Systems Const Denies chills, Denies fatigue, Denies fever(s), Denies frequent falls, Denies weakness, Denies weight gain and Denies weight loss ENT Reports dizziness Card Reports chest pain, Denies leg edema, Reports lightheadedness, Reports palpitations, Denies dyspnea, Denies dyspnea on exertion, Denies orthopnea and Denies other (loss of consciousness) Resp Denies cough, Denies dyspnea and Denies dyspnea on exertion GI Denies hematochezia and Denies change in stool character Musc Denies abnormal gait, Denies muscle weakness, Denies numbness, Denies radiating pain into limb and Denies tingling Neuro Denies Abnormal speech present, Denies abnormal gait, Reports dizziness, Denies frequent falls, Denies numbness, Denies tingling and Denies weakness Endo Denies fatigue and Reports palpitations Physical Exam Vital Signs: Last Vital Signs Pulse 68 07/07/24 12:32 BP 130/80 07/07/24 12:32 Const General: cooperative, comfortable, no acute distress, alert and awake Nutritional Appearance: obese morbidly obese Orientation/consciousness: patient oriented x3 Limitations: no limitations HEENT Head: Yes normocephalic and Yes atraumatic Neck Neck: Yes trachea midline, Yes supple and Yes no JVD Resp Effort & Inspection: normal respiratory effort Auscultation: clear to auscultation bilaterally Cardio Jugular venous distension: no JVD Rate: regular rate Rhythm: regular rhythm Heart sounds: S1 normal heart sound present, S2 normal heart sound present, no click, no gallops, no murmurs and no rubs GI Inspection: Yes obesity Auscultation: normal bowel sounds Skin General skin exam: no rashes or lesions noted Neuro General: patient oriented x3 and no focal motor deficits Speech: No Abnormal speech present Extrem General: Yes no clubbing, cyanosis or edema Psych Appearance: grossly normal Assessment & Plan Assessment & Plan (1) Syncope: Code(s): R55 - Syncope and collapse Category: Medical Plan: Patient continues to have episode of syncope with normal workup by Holter monitor and by prior echocardiogram. Stress test is within normal limits altho ugh with reduced exercise capacity. Discussed about importance of improving exercise capacity to improve long-term outcome. Syncope still not clear and tilt-table test was negative for neurocardiogenic syncope or orthostatic hypotension. Although I think this tilt-table test was suboptimal. Noted 1 episode of Mobitz type 1 second-degree AV block which is benign and not a cause for syncope and was discussed in details with the patient. Would require further workup and given recurrent episodes I think would benefit from implantable loop recorder placement as they did not tolerate external patch monitors due to skin reaction. Advised to maintain adequate hydration. Further treatment based on the findings of the implantable loop recorder. Discussed about various different types of exercise that can be performed, mostly supine or sitting exercises. Risks, benefits, alternatives were discussed in details Will follow-up after implantable loop recorder placement Coding Level of Care Code Est Pt Level 4 (78385) Complex EM visit Add On G2211 Diagnoses Syncope R55
--- OUTSIDE RECORDS SUMMARY | 2024-07-07 15:24 | XMS_ITS | Data Portability ---
Author Organization [facility], [employer] Address [address] [place] [address] Care Team Providers Care Horticultural Farmer Name Role Phone GIL DORSEY Primary Care Provider [phone] GIL DORSEY Referring Provider Assessment Encounter Date Assessment Date Assessment LastModified by Organization Details LastModified Time 08/25/2020 08/25/2020 Patient presents with left heel pain with significant findings including: Pain walking after being sedentary, pain while ambulating without shoes. Based on the history, physical exam, and prior diagnostic tests/treatments , I recommend stretching exercises at home, proper shoegear. Discussed treatment plan and orders with patient as indicated below. A thorough biomechanical exam was performed today. Patient presents complaining of flat feet. Based on history, physical exam, and previous treatments, the patient has been educated extensively on flat feet, shoegear, supports and stretching exercises. Discussed treatment plan and instructions with patient. A thorough biomechanical exam was performed today. Not available 08/25/2020 14:54:38 Plan of Treatment Reminders Order Date Submit Date Provider Last Modified By Organization Details Last Modified Time Details Appointments None record ed. Lab None record ed. Referral None record ed. Procedures None record ed. Surgeries None record ed. Imaging None record ed. Medication Orders None record ed. Patient TargetsNo targets recorded. Patient Instructions Encounter Date Encounter Id Patient Instructions Last Modified By Organization Details Last Modified Time 08/25/2020 [id number] heel pain: care instructions alyce Not available 08/28/2020 17:23:36 flatfoot: care instructions alyce Not available 08/28/2020 17:23:37 The patient was given stretching instructions verbally and has been educated to start stretching, strengthening and conditioning the lower extremity. A handout describing the stretches and Theraband were dispensed to the patient today. The patient was dispensed a pair of Powerstep Pro insoles. They were fitted to the patient today and the patient has been educated about a break-in period of time. The patient has been educated to follo? w -up for serial x-rays in 1 2 3 days weeks. The patient has been educated that a copy of these notes will be forwarded to the harmony? e nts PCP. Not available 08/25/2020 15:03:31 Reason for Referral None Reported. Problems Name Problem SNOMED Code Status Onset Date Resolution Date Notes Provider Name and Address Organization Details Recorded Time Congenital pes planus 12331605 [facility] 0[facility] Heel pain 4646575 Active [facility] 14:51:04 Problem Notes None recorded. Procedures Surgical History Date Name Laterality Status Provider Name and Address Organization Details Recorded Time [facility]/25[facility] 14:51:27 Imaging Results None recorded. Procedure Notes None recorded. Medical Equipment None Reported. Allergies Allergen ID Allergen Name Allergen Category Reaction Reaction Severity Criticality Documentation Date Start Date Code Code System Note Provider Name and Address Organization Details Recorded Time 5427 banana extract food,medi cation Not available Not available Not available 08/25/2020 72767 9 RxNorm [facility] 14:50:14 Medications Name Sig Start Date Stop Date Status Note LastModified by Organization Details LastModified Time citalopram 40 mg tablet TAKE 1 TABLET BY MOUTH EVERY DAY active Not Available Not Available No t Available COVID-19 test specimen collection TEST DIRECTED active Not Available Not Available No t Available Vitals Date Recorded Body height Body mass index (BMI) Body weight Provider Name and Address Organization Details Last Updated DateTime 08/25/2020 165.1 cm 49.9 kg/m2 921689.71 g [facility] 08/25/2020 14:50:05 Social History None recorded. Functional Status None recorded. Mental Status None recorded. Family History Nothing Reported. Medical History Condition Response Gout N Eye problems N Respiratory Disease N Artificial Joints N Angina N Lung Disease N Pacemaker N Anemia N Edema N Psychiatric Disorder N Back Pain N Deep Vein Thrombosis N Stomach Ulcers N Varicose Veins N Diabetes N Bleeding Disorder N Arthritis N Blood Clot N AIDS/HIV N Ear Problems N Cancer N Stroke N Asthma N Leg or Foot Ulcers N Thyroid disease N Shortness of breath N Substance Abuse N Peripheral Vascular Disease N Hepatitis N Liver Disease N Heart Disease N Rheumatoid Arthritis N Pulmonary Embolism N Headaches N Foot Deformity N Fibromyalgia N Dialysis N Hypertension N Osteoporosis N Kidney Disease N Gynecological HistoryNo gynecological history recorded. Obstetrics History GPAL:G 0 P 0 0 0 0 Past Encounters Encounter ID Performer Location Encounter Start Date Encounter Closed Date Diagnosis/Indication Diagnosis SNOMED-CT Code Diagnosis ICD10 Code Diagnosis Note [id number] Gil Dorsey DPM MAIN OFFICE [address] [place] [phone] 08/25/2020 14:41:05 08/25/2020 15:09:59 Plantar fasciitis 924130750 M72.2 Pain in right foot 75958 75195 79957 M79.671 Walking di fficulty due to ankle and foot 632973128 R26.2 Tibialis p osterior tendinitis 101598653 M76.821 Tibialis a nterior tendinitis 646050231 M76.811 Health Concerns Section Related Observation LastModified by Organization Detai ls LastModified Time None Recorded Concern Status LastModified by Organization Details LastModified Time None Recorded Advance Directives Directive None Recorded Payers Encounter Date Sequence Insurance Name Policy Number Policy Steele Covered Member ID Steele Member ID Guarantor Name 08/25/2020 1 [place] [facility] [place]) [id number] Gisele Wright [id number] Gisele Wright Notes Date Note Type Note Provider Name and Address Organization Details Recorded Time 08/25/2020 text/html Heel PainReporte d bypatient.Location :left plantar Quality:throbbing; deep; frequent Severity:moderate Duration:2 months Timing:chronic Context:difficulty finding comfortable shoes Alleviating Factors:limited weight bearing; rest; ice; sitting with feet elevated Aggravating Factors:weight bearing; exercise Associated Symptoms:no redness; no fever; no chills Previous Surgery:none Prior Imaging:none Previous Injections:none Previous Treatment:none Work Related:no Working:noPodiatry FootReported bypatient.Location :bilateral Quality:constant Severity:moderate Duration:continuou s since onset Timing:chronic Context:cannot identify Alleviating Factors:rest Aggravating Factors:walking; weight bearing Associated Symptoms:aching Previous Surgery:none Prior Imaging:none Previous Injections:none Previous Treatments:none The patient presents with plantar fasciitis of the {{right left* bila teral}} foot. The patient presents to the office today with a CC of a {{flexible* rigid} } flatfoot deformity. Gil Dorsey DPM [address] [place] [address] B, [place], [address], [facility] 08/28/2020 17:23:40 OBGyn Episode No OBEpisode recorded.
--- OUTSIDE RECORDS SUMMARY | 2024-07-07 15:24 | XMS_ITS ---
Author Organization [facility] Address [address] [place] [phone] Care Team Providers Care Software Solutions Architect Name Role Phone Bahman Mtz Unavailable [phone] Allergies Allergen (clinical drug ingredient) Drug/Non Drug [...] 01/11/2023 Active Wellbutrin 150 Active BD Disp Leflore 21G X 1-1/2 as directed for drawing [...] 02/25/2024 Encounters Encounter Location Date Provider Diagnosis [place] [facility] [address] [place], [place] [phone] 02/25/2024 Bahman Mtz Other gender identit y [...] ng history Performing medically necessary exam Counseling/Coordi [facility] of Care Documenting the visit Educating the patient Ordering medication/test/p rocedures Interpretation of test performed by others Communication of test results Established Patient: [id number] 30 Minutes Plan Of Treatment Medication Medication [...] Notes * Gisele MCKEONDOB:1990 (33 yo F)Acc No.[id number]:02/25/2024 Patient:?Gisele MCKEON Provider:?Bahman Mtz CNM, ONEIL :1990???Age:33 Y???Sex:Female D ate:02/25/2024 Address:[address] [place], [place] [phone] Subjective: * Chief Complaints: * ???GAH Follow [...] a peak level. * Medical History:? * Dry Roller History:? control:?sex does not risk .?Last menstrual [...] to Pharmacist: 75mg 2 x dayBD Disp Leflore 21G X 1-1/2 Miscellaneous as directed for [...] Pharmacist: 75mg 2 x dayTaking BD Disp Leflore 21G X 1-1/2 Miscellaneous as directed for [...] others Communication of test results Established Patient: [id number] 30 Minutes Plan: * Treatment: * Procedure Codes:? * Follow Up:?1 Year,prn (Reaso n: f/u 1 year or 3 months after any dose increase) * Billing Information: * Visit Code:? 64215 Existing - Medium Complexity (IN USE). * Procedure Codes:? * Sign off status: Completed true * Provider:?Bahman Mtz CNM, ONEIL Date:?1 Generated for Nico de paz/Jacinto/Henny on:?07/07/2024 03:24 PM EST History and Physical Notes * HPI (History of Present Illness) Category Sub-Category Detail Notes Category Not es Visit Narrative Reason for the visit: [facility] Follow Up Q is doing well, on [...]
--- OUTSIDE RECORDS SUMMARY | 2024-07-07 15:24 | XMS_ITS | Clinical Summary ---
Author Organization [facility] Address [address] [place] [phone] Phone Care Team Providers Care Headend Technician Name Role Phone Physician, No Pcp Primary Care Provider Unavaila ble Social History Tobacco Use Types Packs/Day Years Used Date Smoking Tobacco: Never Assessed Comments Unknown Sex and Gender Information Value Date Recorded Sex Assigned at Not on file Legal Sex Female 2:23 PM EST Gender Identity Not on file Sexual Orientation Not on file Plan of Treatment Health Maintenance Due Date Last Done Comments DTaP,Tdap,and Td Vaccines (1 - Tdap) 2009 Hepatitis B Vaccines (1 of 3 - 19+ 3-dose series) 2009 Cervical Cancer Screening: P ap Smear 2011 COVID-19 Vaccine ( - 2023-2 5 season) 2024 Influenza Vaccine (#1) 2024 Depression Screening 04/10/2024 HIV Screening 04/10/2024 Hepatitis C Screening 04/10/2024 Social Influencers of Health Screening 04/10/2024 HIB Vaccines Aged Out No longer eligi ble based on patient's age to complete this topic HPV Vaccines Aged Out No longer eligi ble based on patient's age to complete this topic Hepatitis A Vaccines Aged Out No long er eligible based on patient's age to complete this topic IPV Vaccines Aged Out No longer eligi ble based on patient's age to complete this topic MMR Vaccines Aged Out No longer eligi ble based on patient's age to complete this topic Meningococcal ACWY Vaccine Aged Out N o longer eligible based on patient's age to complete this topic Meningococcal B Vacine Aged Out No lo nger eligible based on patient's age to complete this topic Pneumococcal Vaccine: Pediat rics (0 to 5 Years) and At-Risk Patients (6 to 64 Years) Aged Out No longer eligible b ased on patient's age to complete this topic RSV Immunization Patients Un agnieszka 20 months Aged Out No longer eligible b ased on patient's age to complete this topic Varicella Vaccines Aged Out No longer eligible based on patient's age to complete this topic Insurance HEALTH Proviation [place] Care Teams Headend Technician Relationship Specialty Start Date End Date Physician, No Pcp PCP - General 06/02/24
--- OUTSIDE RECORDS SUMMARY | 2024-07-07 15:24 | XMS_ITS ---
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 and Hormone replacement therapy Z79.890 Assessments Encounter Date Diagnosis (ICD Code) Assessment Notes Treatment Notes Treatment Clinical Notes Section Notes 06/25/2024 Other gender identity disorders (ICD-10 - F64.8) 06/25/2024 Hormone replacement therapy (ICD-10 - Z79.890) Plan Of Treatment Medication Medication Name Sig Start Date Stop Date Notes Testosterone Cypionate 200 MG/ML 0.4 ML Subcutaneous weekly for 90 days 06/25/2024 single dose vials Progress Notes * Gisele MCKEONDOB:1990 (34 yo F)Acc No.[id number]:06/25/2024 Patient:?Gisele MCKEON :1990???Age:34 Y???Sex:Female Address:[address] [place] [address], [phone] * Refills? Refill Testosterone Cypionate Solution, 200 MG/ML, Subcutaneous, 12 Milliliter, 0.4 ML, weekly, 90 days, Refills=0 Subjective: * Chief Complaints: * ???RX needed * Medical History:? * Surgical History:? * Hospitalization/Major Diagno stic Procedure:? * Medications:? Objective: * Vitals:? * Physical Examination:? Assessment: * Assessment: 1.?Other gender identity dis orders - F64.8???2.?Hormone replacement therapy - Z79.890??? Plan: * Treatment: * Procedure Codes:? * true * Date:? Generated for Nico de paz/Jacinto/Luluitting on:?07/07/2024 03:24 PM EST
--- OUTSIDE RECORDS SUMMARY | 2024-07-07 15:24 | XMS_ITS | Patient Health Record ---
Author Organization [facility] Address [address] [place] [id number] Care Team Providers Care Rubber Goods Assembler Name Role Phone HamerBahman lara Unavailable [phone] Micaela Kim Unavailable [phone] Allergies Allergen (clinical drug ingredient) Drug/Non Drug Allergy documented on EMR Reaction Allergy Type Onset Date Status Banana Flavor Unknown Drug Allergy Act oliver Results Component Value Reference Range Notes Hemoglobin [id number] Reviewed date:11/04/2023 05:52:52 PM Interpretation:TNP Performing Lab:[facility], [address] [place] [address], Phone - [phone], Director - Gonzalez Notes/Report: Clinical Information:SRC:urine Hemoglobin A1c TNP Test not performed. No lavender top tube submitted. . Prediabetes: 5.7 - 6.4 Diabetes: >6.4 Glycemic control for adults with diabetes: <7.0 Hemoglobin-[id number] Reviewed date:11/04/2023 05:54:33 PM Interpretation: Performing Lab:[facility], [address] [place] [address], Phone - [phone], Director - Gonzalez Notes/Report: Clinical Information:SRC:urine Hemoglobin TNP Test not perfor med. No lavender top tube submitted. Hematocrit-[id number] Reviewed date:11/04/2023 05:54:37 PM Interpretation: Performing Lab:[facility], [address] [place] [address], Phone - [phone], Director - Gonzalez Notes/Report: Clinical Information:SRC:urine Hematocrit TNP Test not perfor med. No lavender top tube submitted. No Lavender Received TNP Test not performed. No lavender top tube submitted. TEST: [id number] Hemoglobin A1c 225739 Hemoglobin 257041 Hematocrit No Serum Gel Received TNP Test not performed. No serum gel received. TEST: [id number] Testosterone, Total, LC/MS 665676 T pallidum Screening [facility] [id number] HIV Ab/p24 Ag with Reflex [id number] HCV Antibody Testosterone, Total, LC/MS-0 58240 Reviewed date:11/04/2023 05:54:31 PM Interpretation: Performing Lab:[facility] [place], [address] [place] [address], Phone - [phone], Director - [facility] Notes/Report: Clinical Information:SRC:urine Testosterone, Total, LC/MS TNP T est not performed. No serum gel received. T pallidum Screening [facility] -[id number] Reviewed date:11/04/2023 05:53:35 PM Interpretation:TNP Performing Lab:[facility] [place], [address] [place] [address], Phone - [phone], Director - [facility] Notes/Report: Clinical Information:SRC:urine T pallidum Antibodies TNP Test n ot performed. No serum gel received. HIV Ab/p24 Ag with Reflex-08 3935 Reviewed date:11/04/2023 05:54:16 PM Interpretation:TNP Performing Lab:[facility], [address] [place] [address], Phone - [phone], [facility] - [facility] Notes/Report: Clinical Information:SRC:urine HIV Ab/p24 Ag Screen TNP Test no t performed. No serum gel received. Chlamydia/GC Amplification-1 38516 Reviewed date:11/04/2023 05:50:37 PM Interpretation:negative/negative Performing Lab:Kristen Herrera, [address], [place], Phone - [phone], Director - [facility] Notes/Report: Clinical Information:SRC:urine Chlamydia trachomatis, INDIRA Negative Negative Neisseria gonorrhoeae, INDIRA Negative Negative Trich vag by INDIRA-[id number] Reviewed date:11/04/2023 05:49:16 PM Interpretation:negative Performing Lab:[facility] Kristen Camejo, [address], [place], Phone - [phone], Director - [facility] Notes/Report: Clinical Information:SRC:urine Trich vag by INDIRA Negative Negative Ct/GC INDIRA, Pharyngeal-[id number] Reviewed date:11/04/2023 05:50:50 PM Interpretation:negative/negative Performing Lab:[facility] [place], Kristen Aguayo, [address], [place], Phone - [phone], Director - [facility] Notes/Report: Clinical Information:SRC:urine C. trachomatis, INDIRA, Pharyn Negative Negative N. gonorrhoeae, INDIRA, Pharyn Negative Negative HCV Antibody-[id number] Reviewed date:11/04/2023 05:54:24 PM Interpretation: Performing Lab:[facility] [place], [address] [place] [address], Phone - [phone], Director - [place] Notes/Report: Clinical Information:SRC:urine Hep C Virus Ab TNP Test not performed. No serum gel received. HCV antibody alone does not differentiate between previously resolved infection and active infection. Equivocal and Reactive HCV antibody results should be followed up with an HCV RNA test to support the diagnosis of active HCV infection. Hematocrit-[id number] Reviewed date:02/12/2024 05:14:29 PM Interpretation:47.1 Performing Lab:[facility] [place], [address] [place] [address], Phone - [phone], Director - [place] Notes/Report: Hematocrit 47.1 34.0-46.6 % Hemoglobin-[id number] Reviewed date:02/12/2024 05:14:47 PM Interpretation:15.0 Performing Lab:[facility] [place] [facility], [address] [place] [address], Phone - [phone], Director - [place] Notes/Report: Hemoglobin 15.0 11.1-15.9 g/dL Hemoglobin A1c Reviewed date:02/12/2024 05:16:33 PM Interpretation:6.2 Performing Lab:[facility], [address] [place] [address], Phone - [phone], Director - [facility] Notes/Report: Hemoglobin A1c 6.2 Reference Range: [place] Diabetes Association (ADA) Guidelines: <5.7: Decreased risk for diabetes 5.7 - 6.4: Increased risk for diabetes >6.4: Ongoing Hyperglycemia of any cause <7.0: Glycemic control for adults with diabetes Estimated Average Glucose 131 Testosterone, Total, LC/MS-0 31850 Reviewed date:02/12/2024 05:16:43 PM Interpretation:252 Performing Lab:[facility], [address] [facility], Phone - [phone], Director - [facility] Notes/Report: Testosterone, Total, LC/MS 252 This test was developed and its performance characteristics determined by [employer] It has not been cleared or approved by the Food and Drug Administration. Reference Range: Adult Females Premenopausal 10 - 55 Postmenopausal 7 - 40 HCV Antibody-[id number] Reviewed date:02/21/2024 12:13:13 PM Interpretation:negative Performing Lab:[facility] [place], Kristen Aguayo, [address], [place], Phone - [phone], Director - [facility] Notes/Report: Hep C Virus Ab Non Reactive Non Reactive HCV antibody alone does not differentiate between previously resolved infection and active infection. Equivocal and Reactive HCV antibody results should be followed up with an HCV RNA test to support the diagnosis of active HCV infection. T pallidum Screening [facility] -793610 Reviewed date:02/12/2024 05:20:17 PM Interpretation:negative Performing Lab:[facility] [place], [address] [facility], Phone - [phone], Director - [facility] Notes/Report: T pallidum Antibodies Non Reactive Non Reactive HIV Ab/p24 Ag with Reflex-08 3935 Reviewed date:02/21/2024 12:14:37 PM Interpretation:negative Performing Lab:[facility] [place], [address] [facility], Phone - [phone], Director - [facility] Notes/Report: HIV Ab/p24 Ag Screen Non Reactive [...] for 90 days 01/11/2023 Active BD Disp [place] 21G X 1-1/2 as directed for drawing up medication once weekly for drawing up medication once weekly for 90 days 01/11/2023 Active BD Luer-Ganga Syringe 25G X 5/8 1 ML as directed for weekly subcutaneous medication administration for 90 days 04/18/2023 Active Propranolol HCl 10 MG 1 tablet Orally Once a day for 30 day(s) 40mg/day Not-Taking [...] HCl 500 MG 1 tablet with a meal Orally Once a day Active BD [employer] - as directed as directed dispose needles once weekly for 90 days 01/11/2023 Active busPIRone HCl 15 MG 1 tablet Orally Twice a day Not-Taking Estradiol 10 MCG 1 tablet Vaginal Two times a Week for 90 days 02/25/2024 Active Lisinopril Active Venlafaxine HCl Acti ve Wellbutrin 150 Active Testosterone Cypionate 200 MG/ML 0.4 ML Subcutaneous weekly for 90 days single dose vials 06/25/2024 Active Social History Sex Assigned At : Social History Observation Description Sex Assigned At Female Problems Problem Type SNOMED Code ICD Code Onset Dates Problem Status W/U Status Risk Notes Problem 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 [address] [facility] [address] [place], [place] [id number] 10/11/2023 Bahman Mtz Endocrine disorder, unspecified E34.9 ; HIV Screening Z11.4 ; STI Screening Z11.3 ; Contact with and (suspected) exposure to potentially hazardous body fluids Z77.21 ; Chlamydia Screening Z11.3 and Other problems related to lifestyle Z72.89 [facility] [address] [facility] [address] [place], [place] [id number] 02/25/2024 Bahman Mtz Other gender identity disorders F64.[address] [id number] 10/24/2023 Bahman Mtz [address] [id number] 11/04/2023 Bahman Mtz Hormone replacement therapy Z79.890 ; Encounter for screening for other viral diseases Z11.59 ; STI Screening Z11.3 and Endocrine disorder, unspecified E34.[address] [id number] 02/12/2024 Bahman Mtz [address] [id number] 06/25/2024 Micaela Kim Other gender identity disorders F64.8 and Hormone replacement therapy Z79.890 Assessments Encounter Date Diagnosis (ICD Code) Assessment Notes Treatment Notes Treatment Clinical Notes Section Notes 10/11/2023 Endocrine disorder, unspecified (ICD-10 - E34.9) [...] ng history Performing medically necessary exam Counseling/Coordi [facility] Documenting the visit Educating the patient Ordering medication/test/p rocedures Interpretation of test performed by others Communication of test results Established Patient: 52595 30 Minutes 06/25/2024 Other gender identity disorders (ICD-10 - F64.8) 11/04/2023 Encounter for screening for other viral diseases (ICD-10 - Z11.59) 10/11/2023 STI Screening (ICD-10 - Z11.3) 10/11/2023 Contact with and (suspected) exposure to potentially hazardous body fluids (ICD-10 - Z77.21) 06/25/2024 Hormone replacement therapy (ICD-10 - Z79.890) 11/04/2023 STI Screening (ICD-10 - Z11.3) 10/11/2023 [...] Insured Coverage Start Date Coverage End Date [employer] ATTN [employer] CLAIM[employer] DEPT [address] [place] [address] [id number] Gisele Wright Self - patient is the [...]
--- OUTSIDE RECORDS SUMMARY | 2024-07-07 15:24 | XMS_ITS ---
Author Organization [address] [id number] Care Team Providers Care Flight Deck Officer Name Role Phone Bahman Mtz Unavailable [phone] Allergies Allergen (clinical drug ingredient) Drug/Non Drug Allergy documented on EMR Reaction Allergy Type Onset Date Status Banana Flavor Unknown Drug Allergy Act oliver REASON FOR VISIT A1c Social History Sex Assigned At : Social History Observation Description Sex Assigned At Female Encounters Encounter Location Date Provider Diagnosis [address] [id number] 02/12/2024 Bahman Mtz Plan Of Treatment No Information Progress Notes * Gisele MCKEONDOB:1990 (33 yo F)Acc No.[id number]:02/12/2024 Patient:?Gisele MCKEON :1990???Age:33 Y???Sex:Female Address:[address] [place] [address] Subjective: * Chief Complaints: * ???A1c * Medical History:? * Surgical History:? * Hospitalization/Major Diagno stic Procedure:? * Medications:? * Allergies:?Banana Flavor Objective: * Vitals:? * Physical Examination:? Assessment: Plan: * Treatment: * Procedure Codes:? * true * Date:? Generated for Nico de paz/Angeliag/eTransmitting on:?07/07/2024 03:24 PM EST
== END 2024-07-07 13:15 | disposition home or self-care (01) ==
PROVIDERS: PCP Family Medicine; Visit Provider Internal Medicine Cardiovascular Disease
DX: R55 Syncope and collapse (principal)
CPT/HCPCS: 99214; G2211

== ENCOUNTER → 2024-07-07 12:22 | Outpatient (BNVA) | payer OTHER, SELFPAY | PROVIDERS: PCP Family Medicine; Visit Provider Internal Medicine Cardiovascular Disease ==

== ENCOUNTER 2024-07-10 09:54 | Outpatient (REF) | payer OTHER, SELFPAY ==
[2024-07-10 10:25] VITALS: BP 155/82; PULSE 74; RESP 19; TEMP 36.4; O2SAT 96; BMI 49.9
--- OUTSIDE RECORDS SUMMARY | 2024-07-10 10:56 | XMS_ITS ---
Author Organization [address] [phone] Care Team Providers Care Concrete Wall Grinder Operator Name Role Phone Micaela Kim Unavailable [phone] REASON FOR VISIT RX needed Medications Medication SIG (Take, Route, Frequency, Duration) Notes Start Date End Date Status Testosterone Cypionate 200 MG/ML 0.4 ML Subcutaneous weekly for 90 days single dose vials 06/25/2024 Active Social History Sex Assigned At : Social History Observation Description Sex Assigned At Female Encounters Encounter Location Date Provider Diagnosis [address] [id number] 06/25/2024 Micaela Kim Other gender identit y [...] Notes * Gisele MCKEONDOB:1990 (34 yo F)Acc No.[id number]:06/25/2024 Patient:?Gisele MCKEON :1990???Age:34 Y???Sex:Female Address:[address] [place] [address], [address] * Refills? Refill Testosterone Cypionate Solution, 200 [...] * Date:? Generated for Nico de paz/Jacinto/Breasmitting on:?07/10/2024 10:56 AM EST
--- OUTSIDE RECORDS SUMMARY | 2024-07-10 10:56 | XMS_ITS | Clinical Summary ---
Author Organization [facility] Address [address] [place] [phone] Phone Care Team Providers Care Bow Rehairer Name Role Phone Physician, No Pcp Primary [...] age to complete this topic Insurance [employer] [place] Care Teams Bow Rehairer Relationship Specialty Start Date End Date Physician, No Pcp PCP - General 06/02/24
--- OUTSIDE RECORDS SUMMARY | 2024-07-10 10:56 | XMS_ITS ---
Author Organization [facility] Address [address] [place] [phone] Care Team Providers Care Scrub Technician Name Role Phone Bahman Mtz Unavailable [phone] Allergies Allergen (clinical drug ingredient) Drug/Non Drug [...] 01/11/2023 Active Wellbutrin 150 Active BD Disp [place] 21G X 1-1/2 as directed for drawing [...] 02/25/2024 Encounters Encounter Location Date Provider Diagnosis [facility] [address] [place], [place] [phone] 02/25/2024 Bahman Mtz Other gender identit y [...] ng history Performing medically necessary exam Counseling/Coordi [facility] Documenting the visit Educating the patient Ordering medication/test/p rocedures Interpretation of test performed by others Communication of test results Established Patient: 12403 30 Minutes Plan Of Treatment Medication Medication [...] Notes * Gisele MCKEONDOB:1990 (33 yo F)Acc No.[id number]:02/25/2024 Patient:?Gisele MCKEON Provider:?Bahman Mtz CNM, ONEIL :1990???Age:33 Y???Sex:Female D ate:02/25/2024 Address:[address] [place], [place] [phone] Subjective: * Chief Complaints: * ???GAH Follow [...] a peak level. * Medical History:? 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 * Follow Up:?1 Year,prn (Reaso n: f/u 1 year or 3 months after any dose increase) * Billing Information: * Visit Code:? 86859 Existing - Medium Complexity (IN USE). * Procedure Codes:? * Sign off status: Completed true * Provider:?Bahman Mtz CNM, [facility] Date:?1 Generated for Nico de paz/Jacinto/eTnedra on:?07/10/2024 10:55 AM EST History and Physical Notes * HPI (History of Present Illness) Category Sub-Category Detail Notes Category Not es Visit Narrative Reason for the visit: [facility] Follow Up Q is doing well, on [...]
--- OUTSIDE RECORDS SUMMARY | 2024-07-10 10:57 | XMS_ITS ---
Author Organization [address] [phone] Care Team Providers Care Bpm Analyst Name Role Phone Bahman Mtz Unavailable [phone] Allergies Allergen (clinical drug ingredient) Drug/Non Drug Allergy documented on EMR Reaction Allergy Type Onset Date Status Banana Flavor Unknown Drug Allergy Act oliver REASON FOR VISIT A1c Social History Sex Assigned At : Social History Observation Description Sex Assigned At Female Encounters Encounter Location Date Provider Diagnosis [address] [phone] 02/12/2024 Bahman Mtz Plan Of Treatment No Information Progress Notes * Gisele MCKEONDOB:1990 (33 yo F)Acc No.[id number]:02/12/2024 Patient:?Gisele MCKEON :1990???Age:33 Y???Sex:Female Address:[address] [place] [address] Subjective: * Chief Complaints: * ???A1c * Medical History:? * Surgical History:? * Hospitalization/Major Diagno stic Procedure:? * Medications:? * Allergies:?Banana Flavor Objective: * Vitals:? * Physical Examination:? Assessment: Plan: * Treatment: * Procedure Codes:? * true * Date:? Generated for Liui zandra/Angeliag/eTransmitting on:?07/10/2024 10:56 AM EST
--- NOTE | 2024-07-10 15:28 | PM.OP ---
Brief Operative Note Date of Service: 07/10/24 Pre-op diagnosis: Recurrent syncope Post-op diagnosis: same Procedure: Placement of implantable loop recorder Implants: After obtaining informed consent patient was brought to the minor surgery suite. Patient was then laid in the supine position. Patient is precordial area was then prepped and draped in a sterile fashion. A small incision was made in the 4th intercostal space. Patient was then administered 2% lidocaine with epinephrine intradermally and subcutaneously. Despite multiple attempts it was very difficult to place the implantable loop recorder. Blunt dissection was then performed. Patient had a vasovagal reaction after some blunt dissection. They were immediately put in supine position. After much attempt [employer] implantable loop recorder with serial number ([id number]) was placed in the subcutaneous space. Overall patient tolerated the procedure well. The incision was then closed with Steri-Strips and pressure dressing applied in his sterile fashion Surgeon: Sly Robbins MD Anesthesia: local Was an Surgery Technician used for this Procedure?: No Surgery Technician: Asher Arevalo Estimated blood loss (mL): 5 Pathology: none sent Condition: stable Disposition: same day
== END 2024-07-10 09:55 | disposition home or self-care (01) ==
LOC: HO.MS 09:54
PROVIDERS: PCP Family Medicine; Visit Provider Internal Medicine Cardiovascular Disease
PROC: (CPT 33285; principal; 2024-07-10 10:30)
DX: R55 Syncope and collapse (principal)
CPT/HCPCS: 33285; C1764; J2004

== ENCOUNTER → 2024-07-10 09:54 | Outpatient (BNV) | payer OTHER, SELFPAY | PROVIDERS: PCP Family Medicine; Visit Provider Internal Medicine Cardiovascular Disease | DX: R55 Syncope and collapse (principal) | CPT/HCPCS: 33285 ==

== ENCOUNTER 2024-07-17 12:43 | Outpatient (AMB) | payer OTHER, SELFPAY ==
[2024-07-17 12:53] VITALS: BP 124/62; PULSE 79
--- NOTE | 2024-07-17 12:53 | A.OFFVIS_ITS ---
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 Holter monitor showed 1 episode of Mobitz 1 second-degree heart block. And ILR was placed on 07/10/2024 and she now presents for follow-up. Today she reports she has some minor soreness at the ILR site. The original d ressing was taken off and she currently has a Band-Aid in place. No fevers reported. No presyncope, syncope. No concerning heart palpitations. She reports good activity tolerance. [facility] Medical History Sleep apnea Obesity HTN (hypertension) Surgical History Hx of oral surgery Family History Father No problems noted. Mother No problems noted. Social History Patient Tobacco Use Status: Former Tobacco user Review of Systems Const All systems reviewed & are unremarkable except as noted in HPI and below ENT Denies dizziness Card Details: tenderness at ILR site, bandaide in place Denies chest pain, Denies chest pain at rest, Denies chest pain with activity, Denies rapid heart rate, Denies pedal edema, Denies edema, Denies leg edema, Denies lightheadedness, Denies palpitations, Denies dyspnea, Denies dyspnea on exertion and Denies orthopnea Resp Denies cough, Denies dyspnea and Denies dyspnea on exertion GI Denies hematochezia and Denies change in stool character Musc Denies abnormal gait, Denies limited range of motion, Denies muscle cramps, Denies muscle weakness, Denies numbness, Denies radiating pain into limb, Denies stiffness and Denies tingling Neuro Denies abnormal gait, Denies dizziness, Denies numbness and Denies tingling Endo Denies palpitations Physical Exam Vital Signs: Last Vital Signs Pulse 79 07/17/24 12:53 BP 124/62 07/17/24 12:53 Const General: cooperative, healthy appearing, comfortable and no acute distress Orientation/consciousness: patient oriented x3 Chest Other: ILR site left chest healing with no signs of infection, pt has antibacterial oi ntment over area. Site cleaned with betadine and covered with bandaid. Resp Effort & Inspection: normal respiratory effort Auscultation: clear to auscultation bilaterally, no rales, no rhonchi and no wheezes Cardio Rate: regular rate Rhythm: regular rhythm Heart sounds: S1 normal heart sound present, S2 normal heart sound present, no murmurs and no rubs Neuro General: patient oriented x3 Psych Appearance: grossly normal Mental Status: mental status grossly normal Speech and movement: Normal speech and movement present Assessment & Plan Assessment & Plan (1) Syncope: Code(s): R55 - Syncope and collapse Category: Medical Plan: History of syncopal events. She underwent cardiac testing with Stress test which was within normal limits although with reduced exercise capacity. A tilt- table test was negative for neurocardiogenic syncope or orthostatic hypotension. A Holter monitor showed sinus rhythm with average heart rate 81, 1 episode of Mobitz type 1 second-degree AV block which was felt to be benign and not a cause for syncope. She was intolerant to the patches for the Holter monitor. For further evaluation she underwent an implanted loop recorder placement on 07/10/2024. Today she reports some lightheadedness since the loop recorder was placed. No full syncopal events. Wound care was done and incision intact with no signs of infection. Site care reviewed. Will continue with remote monitoring of ILR transmissions and plan to call her with any concerning findings. At this time will arrange for cardiology follow-up in 6 months, sooner if needed. Reviewed good hydration, recognizing symptoms and get an a sitting or lay down if lightheaded. Emergency care if needed. (2) Visit for wound check: Code(s): Z51.89 - Encounter for other specified aftercare Category: Medical Plan: As above Plan Time spent on chart review, documentation, interview, wound care, assessment. Coding Level of Care Code Est Pt Level 3 (54808) Complex EM visit Add On G2211 Diagnoses Syncope R55 Visit for wound check Z51.89 Time Spent (min) 22
--- OUTSIDE RECORDS SUMMARY | 2024-07-17 14:16 | XMS_ITS | Data Portability ---
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 Procedures Surgical History Date Name Laterality Status Provider Name and Address Organization Details Recorded Time [facility] 14[facility]27 Imaging Results None recorded. Procedure Notes None recorded. Medical Equipment None Reported. Allergies Allergen ID Allergen Name Allergen Category Reaction Reaction Severity Criticality Documentation Date Start Date Code Code System Note Provider Name and Address Organization Details Recorded Time 5427 banana extract food,medi cation Not available Not available Not available 08/25/2020 53345 9 RxNorm [facility] 14:50:14 Medications Name Sig Start Date [...] Updated DateTime 08/25/2020 165.1 cm 49.9 kg/m2 092226.71 g [facility] 08/25/2020 14:50:05 Social History None recorded. Functional Status None recorded. Mental Status None recorded. Family History Nothing Reported. Medical History Condition Response Gout N Eye problems N Respiratory Disease N Angina N Artificial Joints N Lung Disease N Pacemaker N Anemia N Edema N Psychiatric Disorder N Back Pain N Deep Vein Thrombosis N Stomach Ulcers N Diabetes N Varicose Veins N Bleeding Disorder N Arthritis N Blood Clot N AIDS/HIV N Ear Problems N Cancer N Stroke N Asthma N Leg or Foot Ulcers N Shortness of breath N Thyroid disease N Substance Abuse N Peripheral Vascular Disease N Hepatitis N Liver Disease N Heart Disease N Rheumatoid Arthritis N Pulmonary Embolism N Fibromyalgia N Dialysis N Headaches N Foot Deformity N Hypertension N Osteoporosis N Kidney Disease N Gynecological HistoryNo gynecological history recorded. Obstetrics History GPAL:G 0 P 0 0 0 0 Past Encounters Encounter ID Performer Location Encounter Start Date Encounter Closed Date Diagnosis/Indication Diagnosis SNOMED-CT Code Diagnosis ICD10 Code Diagnosis Note [id number] Gil Dorsey DPM MAIN OFFICE [address] [place] [phone] 08/25/2020 14:41:05 08/25/2020 15:09:59 Plantar fasciitis 584601831 M72.2 Pain in right foot 75451 33868 40016 M79.671 Walking di fficulty due to ankle and foot 866453681 R26.2 Tibialis p osterior tendinitis 929876260 M76.821 Tibialis a nterior tendinitis 384721307 M76.811 Health Concerns Section Related Observation LastModified by Organization Detai ls LastModified Time None Recorded Concern Status LastModified by Organization Details LastModified Time None Recorded Advance Directives Directive None Recorded Payers Encounter Date Sequence Insurance Name Policy Number Policy Steele Covered Member ID Steele Member ID Guarantor Name 08/25/2020 1 [place] [facility] [place] (PP[place]) [id number] Gisele Wright [id number] Gisele Wright Notes Date Note Type Note [...] rigid} } flatfoot deformity. Gil Dorsey DPM [address] [place] [address] B, [place], [address], [facility] 08/28/2020 17:23:40 OBGyn Episode No OBEpisode recorded.
--- OUTSIDE RECORDS SUMMARY | 2024-07-17 14:16 | XMS_ITS | Patient Health Record ---
Author Organization [facility] Address [address] [place] [id number] Care Team Providers Care Typesetting Machine Operator/Tender Name Role Phone Bahman Mtz Unavailable [phone] Micaela Kim Unavailable [phone] Allergies Allergen (clinical drug ingredient) Drug/Non Drug Allergy documented on EMR Reaction Allergy Type Onset Date Status Banana Flavor Unknown Drug Allergy Act oliver Results Component Value Reference Range Notes HCV Antibody-[id number] Reviewed date:11/04/2023 05:54:24 PM Interpretation: Performing Lab:[facility], [address] [place] [address], Phone - [phone], Director - [place] Notes/Report: Clinical Information:SRC:urine Hep C Virus Ab TNP Test not performed. No serum gel received. HCV antibody alone does not differentiate between previously resolved infection and active infection. Equivocal and Reactive HCV antibody results should be followed up with an HCV RNA test to support the diagnosis of active HCV infection. Ct/GC INDIRA, Pharyngeal-630940 Reviewed date:11/04/2023 05:50:50 PM Interpretation:negative/negative Performing Lab:[facility] [place], [address], [address], [employer], Phone - [phone], [facility]/Report: Clinical Information:SRC:urine C. trachomatis, INDIRA, Pharyn Negative Negative N. gonorrhoeae, INDIRA, Pharyn Negative Negative Trich vag by INDIRA-[id number] Reviewed date:11/04/2023 05:49:16 PM Interpretation:negative Performing Lab:[facility] [place], [address], [address], [place], Phone - [phone], Director - [place] Notes/Report: Clinical Information:SRC:urine Trich vag by INDIRA Negative Negative Chlamydia/GC Amplification-1 40481 Reviewed date:11/04/2023 05:50:37 PM Interpretation:negative/negative Performing Lab:[facility] [place], [address], [address], [place], Phone - [phone], Director - [facility] Notes/Report: Clinical Information:SRC:urine Chlamydia trachomatis, INDIRA Negative Negative Neisseria gonorrhoeae, INDIRA Negative Negative HIV Ab/p24 Ag with Reflex-08 3935 Reviewed date:11/04/2023 05:54:16 PM Interpretation:TNP Performing Lab:[facility], [address] [place] [address], Phone - [phone], Director - [facility] Notes/Report: Clinical Information:SRC:urine HIV Ab/p24 Ag Screen TNP Test no t performed. No serum gel received. T pallidum Screening [place] -222625 Reviewed date:11/04/2023 05:53:35 PM Interpretation:TNP Performing Lab:[facility], [address] [place] [address], Phone - [phone], Director - [facility] Notes/Report: Clinical Information:SRC:urine T pallidum Antibodies TNP Test n ot performed. No serum gel received. Testosterone, Total, LC/MS-0 32090 Reviewed date:11/04/2023 05:54:31 PM Interpretation: Performing Lab:[facility] [place], [address] [place] [address], Phone - [phone], Director - [facility] Notes/Report: Clinical Information:SRC:urine Testosterone, Total, LC/MS TNP T est not performed. No serum gel received. Hematocrit-045210 Reviewed date:11/04/2023 05:54:37 PM Interpretation: Performing Lab:[facility], [address] [place] [address], Phone - [phone], Director - [facility] Notes/Report: Clinical Information:SRC:urine Hematocrit TNP Test not perfor med. No lavender top tube submitted. No Lavender Received TNP Test not performed. No lavender top tube submitted. TEST: 798267 Hemoglobin A1c 081382 Hemoglobin 801772 Hematocrit No Serum Gel Received TNP Test not performed. No serum gel received. TEST: 052417 Testosterone, Total, LC/MS 433437 T pallidum Screening [place] 774356 HIV Ab/p24 Ag with Reflex 137747 HCV Antibody Hemoglobin-638023 Reviewed date:11/04/2023 05:54:33 PM Interpretation: Performing Lab:[facility] [address], Phone - [phone], Director - [place] Notes/Report: Clinical Information:SRC:urine Hemoglobin TNP Test not perfor med. No lavender top tube submitted. Hemoglobin X8c-183936 Reviewed date:11/04/2023 05:52:52 PM Interpretation:TNP Performing Lab:[facility], Phone - [phone], Director - [place] Notes/Report: Clinical Information:SRC:urine Hemoglobin A1c TNP Test not performed. No lavender top tube submitted. . Prediabetes: 5.7 - 6.4 Diabetes: >6.4 Glycemic control for adults with diabetes: <7.0 Hematocrit-653008 Reviewed date:02/12/2024 05:14:29 PM Interpretation:47.1 Performing Lab:[facility], Phone - [phone], Director - [place] Notes/Report: Hematocrit 47.1 34.0-46.6 % Hemoglobin-582887 Reviewed date:02/12/2024 05:14:47 PM Interpretation:15.0 Performing Lab:[facility], Phone - [phone], Director - [place] Notes/Report: Hemoglobin 15.0 11.1-15.9 g/dL Hemoglobin A1c Reviewed date:02/12/2024 05:16:33 PM Interpretation:6.2 Performing Lab:[facility], [address] [place] [address], Phone - [phone], Director - Chandan Notes/Report: Hemoglobin A1c 6.2 Reference Range: Citizen Of [place] Diabetes Association (ADA) Guidelines: <5.7: Decreased risk for diabetes 5.7 - 6.4: Increased risk for diabetes >6.4: Ongoing Hyperglycemia of any cause <7.0: Glycemic control for adults with diabetes Estimated Average Glucose 131 Testosterone, Total, LC/MS-0 51646 Reviewed date:02/12/2024 05:16:43 PM Interpretation:252 Performing Lab:[facility], [address] [facility], Phone - [phone], Director - [facility] Notes/Report: Testosterone, Total, LC/MS 252 This test was developed and its performance characteristics determined by [facility]. It has not been cleared or approved by the Food and Drug Administration. Reference Range: Adult Females Premenopausal 10 - 55 Postmenopausal 7 - 40 HCV Antibody-275983 Reviewed date:02/21/2024 12:13:13 PM Interpretation:negative Performing Lab:[facility] [place], [address], [address], [place], Phone - [phone], Director - [facility] Notes/Report: Hep C Virus Ab Non Reactive Non Reactive HCV antibody alone does not differentiate between previously resolved infection and active infection. Equivocal and Reactive HCV antibody results should be followed up with an HCV RNA test to support the diagnosis of active HCV infection. T pallidum Screening [place] -044070 Reviewed date:02/12/2024 05:20:17 PM Interpretation:negative Performing Lab:[facility] [place], [address] [facility], Phone - [phone], Director - [facility] Notes/Report: T pallidum Antibodies Non Reactive Non Reactive HIV Ab/p24 Ag with Reflex-08 3935 Reviewed date:02/21/2024 12:14:37 PM Interpretation:negative Performing Lab:[facility] [place], [address] [facility], Phone - [phone], Director - [facility] Notes/Report: HIV Ab/p24 Ag Screen [...] for 90 days 01/11/2023 Active BD Disp [place] 21G X 1-1/2 as directed for drawing [...] Notes Problem 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 Problem Gender identity disorder (97768590) Gender identity disorder, 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 Vital Signs Blood pressure diastolic 10 mm Hg 02/25/2024 Height 20 in 02/25/2024 Blood pressure systolic 20 mm Hg 02/25/2024 Weight 10 lbs 02/25/2024 BMI 17.58 kg/m2 02/25/2024 Encounters Encounter Location Date Provider Diagnosis [facility] [address] [place], [place] [phone] 10/11/2023 Bahman Mtz Endocrine disorder, unspecified E34.9 ; HIV Screening Z11.4 ; STI Screening Z11.3 ; Contact with and (suspected) exposure to potentially hazardous body fluids Z77.21 ; Chlamydia Screening Z11.3 and Other problems related to lifestyle Z72.89 [facility] [address] [facility] [facility] [address] [place], [place] [id number] 02/25/2024 Bahman Mtz Other gender identity disorders F64.[address] [id number] 10/24/2023 Bahman Mtz [address] [id number] 11/04/2023 Bahman Mtz Hormone replacement therapy Z79.890 ; Encounter for screening for other viral diseases Z11.59 ; STI Screening Z11.3 and Endocrine disorder, unspecified E34.[address] [id number] 02/12/2024 Bahman Mtz [address] [id number] 06/25/2024 Micaela Kim Other gender identity disorders [...] ng history Performing medically necessary exam Counseling/[facility] Documenting the visit Educating the patient Ordering medication/test/p rocedures Interpretation of test performed by others Communication of test results Established Patient: 36883 30 Minutes 06/25/2024 Other gender identity disorders [...] Insured Coverage Start Date Coverage End Date [employer] ATTN [employer] CLAIMS DEPT [address] [place] [address] [id number] Gisele Wright Self - patient is the [...]
--- OUTSIDE RECORDS SUMMARY | 2024-07-17 14:16 | XMS_ITS ---
Author Organization [address] [id number] Care Team Providers Care Shift Stacker Name Role Phone Micaela Kim Unavailable [phone] REASON FOR VISIT RX needed Medications Medication SIG (Take, Route, Frequency, Duration) Notes Start Date End Date Status Testosterone Cypionate 200 MG/ML 0.4 ML Subcutaneous weekly for 90 days single dose vials 06/25/2024 Active Social History Sex Assigned At : Social History Observation Description Sex Assigned At Female Encounters Encounter Location Date Provider Diagnosis [address] [id number] 06/25/2024 Micaela Kim Other gender identit y [...] Notes * Gisele MCKEONDOB:1990 (34 yo F)Acc No.[id number]:06/25/2024 Patient:?Gisele MCKEON :1990???Age:34 Y???Sex:Female Address:[address] [place] [address], [address] * Refills? Refill Testosterone Cypionate Solution, 200 [...] * Date:? Generated for Nico de paz/Jacinto/Breasmitting on:?07/17/2024 02:16 PM EDT
--- OUTSIDE RECORDS SUMMARY | 2024-07-17 14:16 | XMS_ITS | Clinical Summary ---
Author Organization [facility] Address [address] [place] [phone] Phone Care Team Providers Care Racking Technician Name Role Phone Physician, No Pcp [...] age to complete this topic Insurance [employer] [place] Care Teams Racking Technician Relationship Specialty Start Date End Date Physician, No Pcp PCP - General 06/02/24
--- OUTSIDE RECORDS SUMMARY | 2024-07-17 14:17 | XMS_ITS ---
Author Organization [address] [phone] Care Team Providers Care Senior Java Architect Name Role Phone Bahman Mtz Unavailable [phone] Allergies Allergen (clinical drug ingredient) Drug/Non Drug Allergy documented on EMR Reaction Allergy Type Onset Date Status Banana Flavor Unknown Drug Allergy Act oilver REASON FOR VISIT A1c Social History Sex Assigned At : Social History Observation Description Sex Assigned At Female Encounters Encounter Location Date Provider Diagnosis [address] [id number] 02/12/2024 Bahman Mtz Plan Of Treatment No Information Progress Notes * Gisele MCKEONDOB:1990 (33 yo F)Acc No.[id number]:02/12/2024 Patient:?Gisele MCKEON :1990???Age:33 Y???Sex:Female Address:[address] [place] [address] Subjective: * Chief Complaints: * ???A1c * Medical History:? * Surgical History:? * Hospitalization/Major Diagno stic Procedure:? * Medications:? * Allergies:?Banana Flavor Objective: * Vitals:? * Physical Examination:? Assessment: Plan: * Treatment: * Procedure Codes:? * true * Date:? Generated for Liui ng/Fahannag/eTransmitting on:?07/17/2024 02:16 PM EDT
== END 2024-07-17 13:15 | disposition home or self-care (01) ==
LOC: HO.HCS 12:44
PROVIDERS: PCP Family Medicine; Visit Provider Nurse Practitioner Family
DX: R55 Syncope and collapse (principal); Z51.89 Encounter for other specified aftercare
CPT/HCPCS: 99213; G2211

== ENCOUNTER → 2024-08-09 23:59 | Outpatient (BNV) | payer OTHER, SELFPAY ==
--- NOTE | 2024-08-11 15:37 | MHC.OFFVIS ---
Intake Visit Reasons: Remote ILR check- [employer] Allergies oxcarbazepine Allergy (Mild, Verified 07/17/24 12:54) Unknown PFS Medical History Sleep apnea Obesity HTN (hypertension) Surgical History Hx of oral surgery Family History Father No problems noted. Mother No problems noted. Social History Patient Tobacco Use Status: Former Tobacco user Office Procedures Cardiac Device Check Cardiac Device Check Details: Remote implantable loop recorder report generated 08/09/2024. No arrhythmias or pauses noted. Patient reported 8 symptoms correlating with sinus rhythm 05384-Puxwgl Cardiac Interrogation, subcut cardiac rhythm monitor Procedure code (CPT) selection complete Assessment & Plan Assessment & Plan (1) Implantable loop recorder present: Code(s): Z95.818 - Presence of other cardiac implants and grafts Category: Medical Plan: See above Coding Level of Care Code Procedure Only Diagnoses Implantable loop recorder present Z95.818 CPT Codes Cardiac Device Check - Cardiac Device 16: 35650-Bxvhaq Cardiac Interrogation, subcut cardiac rhythm monitor ([id number])
== END ==
PROVIDERS: PCP Family Medicine; Visit Provider Internal Medicine Cardiovascular Disease
DX: Z45.09 Encounter for adjustment and management of other cardiac device (principal)
CPT/HCPCS: 93298

== ENCOUNTER → 2024-08-19 23:59 | Outpatient (BNV) | payer OTHER, SELFPAY ==
--- NOTE | 2024-08-26 13:47 | MHC.OFFVIS ---
Intake Visit Reasons: Remote ILR check- [employer] Allergies oxcarbazepine Allergy (Mild, Verified 07/17/24 12:54) Unknown PFS Medical History Sleep apnea Obesity HTN (hypertension) Surgical History Hx of oral surgery Family History Father No problems noted. Mother No problems noted. Social History Patient Tobacco Use Status: Former Tobacco user Office Procedures Cardiac Device Check Cardiac Device Check Details: Remote implantable loop recorder report generated 08/19/2024. No pauses or arrhythmias noted. Patient reported 1 symptom correlating with sinus rhythm 93235-Beprzy Cardiac Interrogation, subcut cardiac rhythm monitor Procedure code (CPT) selection complete Assessment & Plan Assessment & Plan (1) Implantable loop recorder present: Code(s): Z95.818 - Presence of other cardiac implants and grafts Category: Medical Plan: See above Coding Level of Care Code Procedure Only Diagnoses Implantable loop recorder present Z95.818 CPT Codes Cardiac Device Check - Cardiac Device 16: 69218-Swfywd Cardiac Interrogation, subcut cardiac rhythm monitor ([id number])
== END ==
PROVIDERS: PCP Family Medicine; Visit Provider Internal Medicine Cardiovascular Disease
DX: Z45.09 Encounter for adjustment and management of other cardiac device (principal)
CPT/HCPCS: 93298

== ENCOUNTER → 2024-09-08 23:59 | Outpatient (BNV) | payer OTHER, SELFPAY ==
--- NOTE | 2024-09-16 17:58 | MHC.OFFVIS ---
Intake Visit Reasons: Remote ILR check- [employer] Allergies oxcarbazepine Allergy (Mild, Verified 07/17/24 12:54) Unknown PFSH Medical History Sleep apnea Obesity HTN (hypertension) Surgical History Hx of oral surgery Family History Father No problems noted. Mother No problems noted. Social History Patient Tobacco Use Status: Former Tobacco user Office Procedures Cardiac Device Check Cardiac Device Check Details: Remote implantable loop recorder report generated 09/08/2024. No significant pauses or arrhythmias noted. Isolated PVCs noted. Patient reported 3 symptoms correlating with sinus rhythm 76440-Mwfdan Cardiac Interrogation, subcut cardiac rhythm monitor Procedure code (CPT) selection complete Assessment & Plan Assessment & Plan (1) Implantable loop recorder present: Code(s): Z95.818 - Presence of other cardiac implants and grafts Category: Medical Plan: See above Coding Level of Care Code Procedure Only Diagnoses Implantable loop recorder present Z95.818 CPT Codes Cardiac Device Check - Cardiac Device 16: 60424-Lnoyki Cardiac Interrogation, subcut cardiac rhythm monitor ([id number])
== END ==
PROVIDERS: PCP Family Medicine; Visit Provider Internal Medicine Cardiovascular Disease
DX: I49.3 Ventricular premature depolarization (principal); Z95.818 Presence of other cardiac implants and grafts
CPT/HCPCS: 93298

== ENCOUNTER → 2024-10-08 23:59 | Outpatient (BNV) | payer OTHER, SELFPAY ==
--- NOTE | 2024-10-12 15:36 | MHC.OFFVIS ---
Intake Visit Reasons: remote ILR check- [employer] Allergies oxcarbazepine Allergy (Mild, Verified 07/17/24 12:54) Unknown PFSH Medical History Sleep apnea Obesity HTN (hypertension) Surgical History Hx of oral surgery Family History Father No problems noted. Mother No problems noted. Social History Patient Tobacco Use Status: Former Tobacco user Office Procedures Cardiac Device Check Cardiac Device Check Details: Remote implantable loop recorder report generated 10/08/2024. No arrhythmias or pauses noted 03191-Gxmlmj Cardiac Interrogation, subcut cardiac rhythm monitor Procedure code (CPT) selection complete Assessment & Plan Assessment & Plan (1) Implantable loop recorder present: Code(s): Z95.818 - Presence of other cardiac implants and grafts Category: Medical Plan: See above Coding Level of Care Code Procedure Only Diagnoses Implantable loop recorder present Z95.818 CPT Codes Cardiac Device Check - Cardiac Device 16: 57015-Rxnmfn Cardiac Interrogation, subcut cardiac rhythm monitor ([id number])
== END ==
PROVIDERS: PCP Family Medicine; Visit Provider Internal Medicine Cardiovascular Disease
DX: Z45.09 Encounter for adjustment and management of other cardiac device (principal)
CPT/HCPCS: 93298

== ENCOUNTER → 2024-11-07 23:59 | Outpatient (BNV) | payer OTHER, SELFPAY ==
--- NOTE | 2024-11-12 13:23 | MHC.OFFVIS ---
Intake Visit Reasons: remote ILR check- [employer] Allergies oxcarbazepine Allergy (Mild, Verified 07/17/24 12:54) Unknown PFSH Medical History Sleep apnea Obesity HTN (hypertension) Surgical History Hx of oral surgery Family History Father No problems noted. Mother No problems noted. Social History Patient Tobacco Use Status: Former Tobacco user Office Procedures Cardiac Device Check Cardiac Device Check Details: Remote implantable loop recorder report generated 11/07/2024. On November 04 at 09:27 appears like patient had 2nd pause. Will follow up with the patient 50605-Boesum Cardiac Interrogation, subcut cardiac rhythm monitor Procedure code (CPT) selection complete Assessment & Plan Assessment & Plan (1) Implantable loop recorder present: Code(s): Z95.818 - Presence of other cardiac implants and grafts Category: Medical Plan: See above Coding Level of Care Code Procedure Only Diagnoses Implantable loop recorder present Z95.818 CPT Codes Cardiac Device Check - Cardiac Device 16: 92112-Nkuwer Cardiac Interrogation, subcut cardiac rhythm monitor ([id number])
== END ==
PROVIDERS: PCP Family Medicine; Visit Provider Internal Medicine Cardiovascular Disease
DX: I49.9 Cardiac arrhythmia, unspecified (principal); Z95.818 Presence of other cardiac implants and grafts
CPT/HCPCS: 93298

== ENCOUNTER → 2024-12-07 23:59 | Outpatient (BNV) | payer OTHER, SELFPAY ==
--- NOTE | 2024-12-15 09:29 | MHC.OFFVIS ---
Intake Visit Reasons: remote ILR check- [employer] Allergies oxcarbazepine Allergy (Mild, Verified 07/17/24 12:54) Unknown PFSH Medical History Sleep apnea Obesity HTN (hypertension) Surgical History Hx of oral surgery Family History Father No problems noted. Mother No problems noted. Social History Patient Tobacco Use Status: Former Tobacco user Office Procedures Cardiac Device Check Cardiac Device Check Details: Remote implantable loop recorder report generated 12/07/2024. No pauses or arrhythmias noted 34249-Kmqxrz Cardiac Interrogation, subcut cardiac rhythm monitor Procedure code (CPT) selection complete Assessment & Plan Assessment & Plan (1) Implantable loop recorder present: Code(s): Z95.818 - Presence of other cardiac implants and grafts Category: Medical Plan: See above Coding Level of Care Code Procedure Only Diagnoses Implantable loop recorder present Z95.818 CPT Codes Cardiac Device Check - Cardiac Device 16: 69612-Yljuai Cardiac Interrogation, subcut cardiac rhythm monitor ([id number])
== END ==
PROVIDERS: PCP Family Medicine; Visit Provider Internal Medicine Cardiovascular Disease
DX: Z45.09 Encounter for adjustment and management of other cardiac device (principal)
CPT/HCPCS: 93298

== ENCOUNTER → 2025-01-06 23:59 | Outpatient (BNV) | payer OTHER, SELFPAY ==
--- NOTE | 2025-01-14 14:34 | MHC.OFFVIS ---
Intake Visit Reasons: remote ILR check- [employer] Allergies oxcarbazepine Allergy (Mild, Verified 07/17/24 12:54) Unknown PFS Medical History Sleep apnea Obesity HTN (hypertension) Surgical History Hx of oral surgery Family History Father No problems noted. Mother No problems noted. Social History Patient Tobacco Use Status: Former Tobacco user Office Procedures Cardiac Device Check Cardiac Device Check Details: Remote implantable loop recorder report generated 01/06/2025. No pauses or arrhythmias noted. Patient marked the counter 4 times, 2 of the times reported correlating with sinus tachycardia [id number] Cardiac Interrogation, subcut cardiac rhythm monitor Procedure code (CPT) selection complete Assessment & Plan Assessment & Plan (1) Implantable loop recorder present: Code(s): Z95.818 - Presence of other cardiac implants and grafts Category: Medical Plan: See above Coding Level of Care Code Procedure Only Diagnoses Implantable loop recorder present Z95.818 CPT Codes Cardiac Device Check - Cardiac Device 16: [id number] Cardiac Interrogation, subcut cardiac rhythm monitor ([id number])
== END ==
PROVIDERS: PCP Family Medicine; Visit Provider Internal Medicine Cardiovascular Disease
DX: R00.0 Tachycardia, unspecified (principal); Z95.818 Presence of other cardiac implants and grafts
CPT/HCPCS: 93298

== ENCOUNTER 2025-01-08 10:19 | Outpatient (AMB) | payer OTHER, SELFPAY ==
--- NOTE | 2025-01-08 10:21 | MHC.OFFVIS ---
Vital Signs 01/08/25 10:24 01/08/25 10:39 01/08/25 10:41 Height 5 ft 5 in BP 135/73 145/74 H 166/90 H Blood Pressure Location Lt brachial Lt brachial Lt brachial Position Supine Sitting Standing Pulse 83 81 101 H Intake Visit Reasons: 6m follow up Intake Note: 6 month follow-up Core Cutter Required: No Allergies oxcarbazepine Allergy (Mild, Verified 07/17/24 12:54) Unknown Medication List - Last Reconciled 01/08/25 by Sly Robbins MD bupropion HCl SR (Wellbutrin SR) 100 mg PO BEDTIME buspirone 15 mg PO BID lisinopril 10 mg PO DAILY lisinopril 20 mg PO DAILY meloxicam 15 mg PO DAILY metformin 750 mg PO BID testosterone cypionate 60 mg IM QWEEK venlafaxine ER 75 mg PO DAILY venlafaxine ER 150 mg PO DAILY HPI Comments Details: Q comes for follow-up. Continues to have symptoms of lightheadedness especially in hot weather. They have not had any syncopal episodes. Also notices heart rate racing. Implantable loop recorder more recently have not shown any significant pauses. Uses CPAP regularly. Also drinks about 96 oz of fluid every day. Blood pressure has been overall well controlled. Awaiting consult by EPS. He has not been able to lose much weight. [facility] Medical History Sleep apnea Obesity HTN (hypertension) Surgical History Hx of oral surgery Family History Father No problems noted. Mother No problems noted. Social History Patient Tobacco Use Status: Former Tobacco user Review of Systems Const Denies chills, Denies fatigue, Denies fever(s), Denies frequent falls, Denies weakness, Denies weight gain and Denies weight loss ENT Denies dizziness Card Denies chest pain, Denies leg edema, Denies lightheadedness, Denies palpitations, Denies dyspnea, Denies dyspnea on exertion, Denies orthopnea and Denies other (loss of consciousness) Resp Denies cough, Denies dyspnea and Denies dyspnea on exertion GI Denies hematochezia and Denies change in stool character Musc Denies abnormal gait, Denies muscle weakness, Denies numbness, Denies radiating pain into limb and Denies tingling Neuro Denies abnormal gait, Denies dizziness, Denies frequent falls, Denies numbness, Denies tingling and Denies weakness Endo Denies fatigue and Denies palpitations Physical Exam Vital Signs: Last Vital Signs Pulse 101 H 01/08/25 10:41 BP 166/90 H 01/08/25 10:41 Const General: cooperative, healthy appearing, comfortable and no acute distress Orientation/consciousness: patient oriented x3 Chest Other: ILR site left chest healing with no signs of infection, pt has antibacterial ointment over area. Site cleaned with betadine and covered with bandaid. Resp Effort & Inspection: normal respiratory effort Auscultation: clear to auscultation bilaterally, no rales, no rhonchi and no wheezes Cardio Rate: regular rate Rhythm: regular rhythm Heart sounds: S1 normal heart sound present, S2 normal heart sound present, no murmurs and no rubs Neuro General: patient oriented x3 Psych Appearance: grossly normal Mental Status: mental status grossly normal Speech and movement: Normal speech and movement present Office Procedures Cardiac Device Check Cardiac Device Check Details: [employer] implantable loop recorder in place. Good R-wave sensing as well as good battery life noted. No pauses or arrhythmias noted. 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 Although on the other hand patient also has hypertension which makes management very difficult. At this point time discussed limitation in managing with vasoconstrictors as well as salt retention medications that can potentially cause more high blood pressure. They understand. Advised to continue with aggressive oral hydration without much salt intake. Advised to monitor blood pressure at home. More recently there has been no evidence of significant pauses. Continue CPAP therapy. Await electrophysiology consultation although it seems like the management would be without a pacemaker. This was discussed. If there was no pacemaker requirement and patient continues to be symptomatic with tachycardia symptoms can use beta-marcel to help with symptom management. This will also help with blood pressure management. Continue participate in regular physical activity and increasing activity level and participate in weight loss was discussed. This should help overall with management of her hypertension. Would advise sudden endocrine workup to rule out etiology that could cause labile blood pressure as well as orthostatic hypertension that was noted today. Stress management was discussed. Overall limitation in management options were discussed with them. They understand and agree. Will follow up in 6 months time, sooner PRN. 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
[2025-01-08 10:24] VITALS: BP 135/73; PULSE 83
[2025-01-08 10:39] VITALS: BP 145/74; PULSE 81
[2025-01-08 10:41] VITALS: BP 166/90; PULSE 101
--- OUTSIDE RECORDS SUMMARY | 2025-01-08 11:23 | XMS_ITS | Clinical Summary ---
Author Organization [facility] Address [address] [place] [address] Phone Care Team Providers Care Surveillance Analyst Name Role Phone Dee Dee Ozuna MD Primary Care Provider Allergies Active Allergy Reactions Criticality Noted Date Comments Banana 08/25/2021 Medications citalopram (CELEXA) 40 MG tablet Take 1 tablet by mouth daily. 1 Active diclofenac sodium (VOLTAREN) 50 MG EC tablet Take 50 mg by mouth 2 (two) times a day. Active busPIRone (BUSPAR) 15 MG tablet Take 15 mg by mouth 2 (two) times a day. Active estradioL (VAGIFEM) [address] 10 mcg vaginally 2 (two) times a week. 4 Active fluocinonide 0.05 % external solution Apply 1 Application topically as needed. 1 Active guaiFENesin (ROBITUSSIN) 100 mg/5 mL syrup Take 200 mg by mouth 3 (three) times a day as needed. Active hydroCHLOROthia zide 12.5 mg capsule Take 12.5 mg by mouth every morning. Active ketoconazole (NIZORAL) 2 % shampoo Apply 1 Application topically once a week. 1 Active lidocaine 5 % ointment Apply 1 Application topically as needed. 4 Active lisinopril-hydr oCHLOROthiazide (PRINZIDE,ZESTO RETIC) 20-25 mg per tablet Take 1 tablet by mouth every morning. 4 Active metFORMIN (GLUCOPHAGE) 500 MG tablet Take 500 mg by mouth daily with breakfast. Active metoprolol succinate (TOPROL-XL) 50 MG 24 hr tablet Take 1 tablet by mouth every morning. 4 Active pregabalin (LYRICA) 75 MG capsule Take 75 mg by mouth 2 (two) times a day. Active propranoloL (INDERAL) 10 MG immediate release tablet Take 10 mg by mouth daily. Active testosterone cypionate (DEPO-TESTOTERO NE) 200 mg/mL injection 0.4 ML Subcutaneous weekly 4 Active venlafaxine (EFFEXOR-XR) 150 MG 24 hr capsule Take by mouth daily. Active venlafaxine (EFFEXOR-XR) 75 MG 24 hr capsule Take 1 capsule by mouth every morning. 4 Active Social History Tobacco Use Types Packs/Day Years Used Date Smoking Tobacco: Former Cigarettes Q uit: 2019 Tobacco Cessation:Counseling Given: Not Answered Alcohol Use Standard Drinks/Week Comments Yes 0 (1 standard drink = 0.6 oz pure alcohol) occassionally (x3/week as of 08/25/21) Education Answer Date Recorded Are you interested in more education? Not on perez e 09/01/2022 Are you concerned about learning? Not on file 09/01/2022 No 09/01/2022 No 09/01/2022 Digital Access Answer Date Recorded No 09/30/2022 No 09/30/2022 Reliable internet access at home? Not on file 09/30/2022 Device with a working camera? Not on file Comments Unknown Sex and Gender Information Value Date Recorded Sex Assigned at Not on file Legal Sex Female 8:11 PM EDT Gender Identity Not on file Sexual Orientation Not on file Last Filed Vital Signs Vital Sign Reading Time Taken Comments Blood Pressure 146/80 03/18/2024 8:01 AM EST Pulse 74 03/18/2024 8:01 AM EST Temperature 36.8 C (98.2 F) 08/25/2021 8:24 PM EDT Respiratory Rate 18 08/25/2021 10:32 PM EDT Oxygen Saturation 96% 03/18/2024 8:01 AM EST Inhaled Oxygen Concentration - - Weight - - Height 165.1 cm (5' 5 ) 03/18/2024 8:01 AM EST Body Mass Index - - Plan of Treatment Health Maintenance Due Date Last Done Comments CREATININE LEVEL 1990 POTASSIUM LEVEL 1990 DEPRESSION SCREENING 2002 SMOKING Hx and SMOKELESS TOBACCO SCREENING 2003 HIV ONE-TIME SCREENING (18-6 5 YEARS) 2008 PAP SMEAR 2011 INFLUENZA VACCINE (#1) 2024 01/12/2021 COVID-19 VACCINE (2024-2 6 season) 2025 08/22/2020, 07/25/2020 Adult Td,Tdap Booster 08/25/2025 08/26/2015 HEPATITIS C SCREENING Completed 01/12/2021 HEPATITIS A VACCINES Aged Out No long er eligible based on patient's age to complete this topic HIB VACCINES Aged Out No longer eligi ble based on patient's age to complete this topic MENINGOCOCCAL VACCINES (ACWY) Aged Out No longer eligible based on patient's age to complete this topic MENINGOCOCCAL VACCINES (B) Aged Out N o longer eligible based on patient's age to complete this topic PNEUMOCOCCAL VACCINES (0-49 years) Aged Out No longer eligible b ased on patient's age to complete this topic Medical Devices Not on file Insurance HEALTH [employer] Care Teams Surveillance Analyst Relationship Specialty Start Date End Date Dee Dee Ozuna MD [address] [place] [phone] [email or web address] PCP - General Internal Medicine 08/25/21 Additional Source Comments The information contained in this document represents components of the legal health record. It is not the complete legal health record.[facility]
--- OUTSIDE RECORDS SUMMARY | 2025-01-08 11:23 | XMS_ITS | Patient Health Record ---
Author Organization [facility] Address [address] [place] [id number] Care Team Providers Care Certified Teacher Assistant Name Role Phone Bibi, Bahman Unavailable [phone] Micaela Kim Unavailable [phone] Ginny Kim Unavailable [phone] Allergies Allergen (clinical drug ingredient) Drug/Non Drug Allergy documented on EMR Reaction Allergy Type Onset Date Status Banana Flavor Unknown Drug Allergy Act oliver Reason For Referral No Information Medications Medication SIG (Take, Route, Frequency, Duration) Notes Start Date End Date Status Pregabalin 25 MG Capsule 1 capsule Orall y Once a day 75mg 2 x day Active Propranolol HCl 10 MG Tablet 1 tablet Orally Once a day; Duration: 30 day(s) 40mg/day Not-Taking/ PRN Diclofenac Sodium 50 MG Tablet Delayed Release 1 tablet as needed Orally Twice a day Active hydroCHLOROthiazide 12.5 MG Capsule 1 capsule in the morning Orally Once a day; Duration: 30 day(s) Active [facility] Alcohol Prep Pads 70 % Pad as directed transdermal clean vial and skin prior to injection weekly; Duration: 90 days 01/11/2023 Active Effexor XR 150 MG Capsule Extended Release 24 Hour 1 capsule with food Orally Once a day; Duration: 30 day(s) 225mg per day Active BD Luer-Ganga Syringe 25G X 5/8 1 ML Miscellaneous as directed for weekly subcutaneous medication administration; Duration: 90 days 04/18/2023 Active Metoprolol Succinate 25 MG Capsule ER 24 Hour Sprinkle 1 capsule Orally Once a day Active BD Luer-Ganga Syringe 25G X 5/8 1 ML Miscellaneous as directed SQ Once weekly as directed; Duration: 90 01/11/2023 Active BD Disp [place] 21G X 1-1/2 Miscellaneous as directed for drawing up medication once weekly for drawing up medication once weekly; Duration: 90 days 01/11/2023 Active metFORMIN HCl 500 MG Tablet 1 tablet with a meal Orally Once a day Active Testosterone Cypionate 200 MG/ML Solution 0.4 ML Subcutaneous weekly; Duration: 90 days single dose vials 08/24/2024 Active busPIRone HCl 15 MG Tablet 1 tablet Orally Twice a day Not-Taking/ PRN Estradiol 10 MCG Tablet 1 tablet Vaginal Two times a Week; Duration: 90 days 02/25/2024 Active Lisinopril Active Venlafaxine HCl Acti ve Wellbutrin 150 Active BD [employer] - Miscellaneous as directed as directed dispose needles once weekly; Duration: 90 days 01/11/2023 Active Social History Sex Assigned At : Social History Observation Description Sex Assigned At Female Social History HIV Risk Assessment Social Info Question Answer Notes Additional Questions Is an HIV Risk Assessment being c onducted? Yes Have you been tested for HIV before? Yes Did you have a blood transfusion prior to 1985? No Do you have an unlicensed body piercing or tattoo? Not reported Reproductive Life Plan: Social Info Question Answer Notes Reproductive Life Plan: Do you want to h ave children? No maybe, but not wanting to discuss now. Human Trafficking: Social Info Question Answer Notes Human Trafficking Experienced: No PrEP for HIV: Social Info Question Answer Notes PrEP for HIV Is the client interested in beginning/continuing PrEP for HIV? No Sexual History: Social Info Question Answer Notes Sexual History: Sexual History Reviewed: Partners, Practices, Protection/Past STIs, Prevention of Currently sexually active? Yes Sexually active with: Assigned Female at Number of assigned female at partners 3 Your sexual activities include: oral intercourse, vaginal intercourse urine self collect oral Reviewed types of EC? Yes Offered client EC? No Do you use condoms? Yes Condoms are used: most of the time Date of last unprotected intercourse: 2 months ago Number of partners in past 3 months: 1 Number of partners in past year: 5 What is the client's primary method to prevent at the end of their visit? Condoms - Male Does your partner(s) currently have any STIs? No Counseling Provided: Social Info Question Answer Notes Counseling Provided The client was couns eled on the following topics at this visit: Gender Affirming Hormones Please indicate the length o f time, in minutes, that counseling was provided. 5 Counseling Was Provided By: alma Drugs/Alcohol: Social Info Question Answer Notes Drug/Alcohol Use Do you or have you used drugs? Yes, c urrently By what route are you taking drugs? Please check all that apply: Smoking Which drug(s) do you smoke? Marijuana, Other (please specify in notes) mushrooms Do you or have you used alcohol? Yes, currently not often Food Access: Social Info Question Answer Notes Food Access The Client's current access to food is Secure Food Access Relationships: Social Info Question Answer Notes Relationships Has the client experienced any of the following: Client has never experienced harmful relationships DO NOT USE - Travel Plans: Social Info Question Answer Notes Travel Plans DO NOT USE - Has cli ent traveled to any Zika affected areas? No Housing Social Info Question Answer Notes Housing The client's current living situation is: stable housing Tobacco Use: Social Info Question Answer Notes Tobacco Use: Do you/have you used tobacco? Yes, in the past When did you quit? 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 Vital Signs Blood pressure diastolic 10 mm Hg 02/25/2024 Height 20 in 02/25/2024 Blood pressure systolic 20 mm Hg 02/25/2024 Weight 10 lbs 02/25/2024 BMI 17.58 kg/m2 02/25/2024 Encounters Encounter Location Date Provider Diagnosis [address] [place], [place] [id number] 02/25/2024 Bahman Mtz Other gender identity disorders F64.[address] [id number] 02/12/2024 Bahman Mtz [address] [place] [id number] 06/25/2024 Micaela Kim Other gender identity disorders F64.8 and Hormone replacement therapy Z79.[address] [place] [id number] 08/24/2024 Ginny Kim Hormone replacement therapy Z79.890 and Gender identity disorder, unspecified F64.9 Assessments Encounter Date Diagnosis (ICD Code) Assessment [...] others Communication of test results Established Patient: 29439 30 Minutes 06/25/2024 Other gender identity disorders (ICD-10 - F64.8) 08/24/2024 Hormone replacement therapy (ICD-10 - Z79.890) 08/24/2024 Gender identity disorder, unspecified (ICD-10 - F64.9) 06/25/2024 Hormone replacement therapy (ICD-10 - Z79.890) Plan Of Treatment Pending Test Test Name Order Date ALT (SGPT) 03/20/2022 AST (SGOT) 03/20/2022 HEMOGLOBIN AND HEMATOCRIT 03/20/2022 TESTOSTERONE, TOTAL (MALES > 15 YRS) Insurance Providers Payer Name Payer Address Payer Phone Subscriber Number Group Number Insured Name Patient Relationship to Insured Coverage Start Date Coverage End Date [employer] ATTN [employer] DEPT [address] [place] [address] [id number] Gisele Wright Self - patient is the [...]
--- OUTSIDE RECORDS SUMMARY | 2025-01-08 11:23 | XMS_ITS | Encounter Summary ---
Author Organization [facility] Address [address] [place] [phone] Phone Care Team Providers Care Eyewear Manufacturing Supervisor Name Role Phone Dee Dee Ozuna MD Primary Care Provider Encounter Details Date Type Department Care Team ([facility] st Contact Info) Description 01/16/2024 Procedure Pass [facility] [address] [place] [address] Social History Tobacco Use Types Packs/Day Years Used Date Smoking Tobacco: Former Cigarettes Q uit: 2019 Alcohol Use Standard Drinks/Week Comments Yes 0 [...] on file Sexual Orientation Not on file documented as of this encounter Plan of Treatment Not on file documented as of this encounter Visit Diagnoses Not on filedocumented in this encounter Care Teams Eyewear Manufacturing Supervisor Relationship Specialty Start Date End Date Dee Dee Ozuna MD [address] [place] [phone] [email or web address] PCP - General Internal Medicine 08/25/21 documented as of this encounter Additional Source Comments The information contained in this document represents components of the legal health record. It is not the complete legal health record.[facility]
--- OUTSIDE RECORDS SUMMARY | 2025-01-08 11:23 | XMS_ITS | Clinical Summary ---
Author Organization [facility] Address [address] [place] [phone] Phone Care Team Providers Care Esl Instructional Assistant Name Role Phone Physician, No Pcp Primary [...] Cervical Cancer Screening: P ap Smear 2011 HIV Screening 04/10/2024 Hepatitis C Screening 04/10/2024 Social Influencers of Health Screening 04/10/2024 Depression Screening 05/06/2024 COVID-19 Vaccine ( - 2023-2 5 season) 2025 Influenza Vaccine (#1) 2025 HIB Vaccines Aged Out No longer eligi [...] age to complete this topic Meningococcal B Vaccine Aged Out No l onger eligible based on patient's age to complete this topic Pneumococcal Vaccine: Pediat rics (0 to 5 Years) and At-Risk Patients (6 to 49 Years) Aged Out No longer eligible b ased on patient's age to complete this topic RSV Immunization Patients Un agnieszka 20 months Aged Out No longer eligible b ased on patient's age to complete this topic Varicella Vaccines Aged Out No longer eligible based on patient's age to complete this topic Insurance HE[employer] Care Teams Esl Instructional Assistant Relationship Specialty Start Date End Date Physician, No Pcp PCP - General 06/02/24
--- OUTSIDE RECORDS SUMMARY | 2025-01-08 11:23 | XMS_ITS | Encounter Summary ---
Author Organization [facility] Address [address] [place] [phone] Phone Care Team Providers Care Battery Inspector Name Role Phone Dee Dee Ozuna MD Primary Care Provider Reason for Referral * Outpatient Procedure - Closed Specialty Diagnoses / Procedures Referred By Trish sandoval Referred To Contact Radiology Diagnoses Palpitations Procedures Adult Echo TTE Torie Clemons DO [address] [place] [address] Phone: tel: fax: [email or web address] Referral ID Status Reason Start Date Expiration Date Visits Re quested Visits Authorized [id number] Closed 01/16/2024 01/15/2025 1 1 Encounter Details Date Type Department Care Team (Latest Contact Info) Description 01/16/2024 Transcribe Orders Virtual Department [address] [place] [address] Torie Clemons DO [address] [place] [address] [email or web address] Palpitations (Primary Dx) Social History Tobacco Use Types Packs/Day Years [...] on file documented as of this encounter Results * TTE COMPREHENSIVE W/ LVO CONTRAST (01/27/2024 2:30 PM EDT) Systolic BP 154 mmHg Diastolic BP 93 mmHg Left Atrium Dimension Anterior-Posterior 36 15 - 40 mm Aortic Sinus Diameter 30 <40 mm Ascending Aorta Diameter 30 <36 mm Inferior Vena Cava Diameter 10 <21 mm Interventricular Septum Thickness 11 6 - 11 mm Left Ventricle Internal Diameter End Diastole 54 37 - 52 mm Left Ventricle Internal Diameter End Systole 37 <35 mm Left Ventricular Outflow Tract Diameter 19.0 mm Left Ventricular Posterior Wall Thickness 13 6 - 11 mm Ejection Fraction 60 50 - 75 Percent Mitral Valve A Wave Speed 82.7 cm/s Mitral Valve E Wave Speed 91.7 cm/s Raw LV EF% 53 % Relative Wall Thickness 0.48 0.22 - 0.42 Left Ventricle Ea Lateral Wave Speed 13.8 cm/s MV E/E' Tissue Velocity Lateral 6.64 Left Ventricle E Wave Speed 91.7 cm/s Left Ventricle A Wave Speed 82.7 cm/s MV E/A ratio 1.1 Left Ventricle Ea Septal Wave Speed 9.7 cm/s MV E/e' septal 9.45 Left Ventricle E/e' Average 8.0 Mitral Valve Deceleration Time 176 ms Echo E/Ea 9.45 Anatomical Region Laterality Modality Heart Ultrasound Narrative 01/28/2024 1:26 PM EDT Images from the original result were not included. Technically difficult study. LV chamber measurements cannot be accurately determined. LV systolic function is normal with EF 60 to 65% on visual assessment. Wall motion abnormalities cannot be accurately ruled out. The right ventricle is not well-visualized. Diastolic function cannot be assessed. The cardiac valves are not visualized sufficiently to comment on structure or function. No prior study for comparison. Overall, this study was of limited diagnostic yield. Left Ventricle The left ventricle is suboptimally visualized. There is normal left ventricular systolic function. The LV ejection fraction is 60% (calculated via the single plane method of discs). LV diastolic function appears within normal limits for age. The E wave velocity is 91.7 cm/s. The A wave velocity is 82.7 cm/s. The E/A ratio is 1.1. The E/e' septal ratio is 9.45. The E/e' lateral ratio is 6.64. The average E/e' ratio is 8.0. The MV deceleration time is 176 ms. There is no evidence of thrombus. Right Ventricle The RV is suboptimally visualized. Left Atrium The left atrium is normal in size. The left atrial anterior-posterior dimension is 36 mm. There are normal flow patterns in the pulmonary vein. Right Atrium The right atrium is suboptimally visualized. The IVC is normal in size with normal inspiratory collapse. Mitral Valve The mitral valve is suboptimally visualized. The mitral valve appears normal. There is no mitral stenosis. There is trace mitral regurgitation. Tricuspid Valve The tricuspid valve is suboptimally visualized. There is no tricuspid stenosis. RV systolic pressure could not be estimated due to insufficient TR Doppler envelope. Aortic Valve The aortic valve is suboptimally visualized. There is no aortic stenosis. There is no aortic regurgitation. The visualized portions of the thoracic aorta appear normal in size. Pulmonic Valve The pulmonic valve is suboptimally visualized. There is no pulmonic stenosis. Pericardium There is no pericardial effusion. General Findings The study was technically difficult (4). Study quality explanation: body habitus. Technique(s) used in the evaluation: Color flow Doppler and Spectral Doppler. Meds reconciled and reviewed (see chart). Consent was obtained from: patient An echo contrast agent was administered IV, per ASE guidelines. The predominant rhythm during the study was sinus. Patient tolerated the procedure well. No adverse reaction to medication was noted. . No complications observed during the procedure. Comparison Findings There are no prior studies for comparison. IAS/IVS The interatrial septum is suboptimally visualized. Torie L Clemons DO CV ECHO ORDERABLES Final Res ult documented in this encounter Visit Diagnoses Diagnosis Palpitations- Primary Palpitations documented in this encounter Care Teams Battery Inspector Relationship Specialty Start Date End Date Dee Dee Ozuna MD [address] [place] [address] [email or web address] PCP - General Internal Medicine 08/25/21 documented as of this encounter Additional Source Comments The information contained in this document represents components of the legal health record. It is not the complete legal health record.[facility]
== END 2025-01-08 11:15 | disposition home or self-care (01) ==
LOC: HO.HCS 10:19
PROVIDERS: PCP Family Medicine; Visit Provider Internal Medicine Cardiovascular Disease
DX: G90.1 Familial dysautonomia [Riley-Day] (principal)
CPT/HCPCS: 93291; 99214; G2211

== ENCOUNTER 2025-01-08 10:19 | Outpatient (REF) | payer OTHER, SELFPAY ==
[2025-01-15 16:24] LABS: Metanephrine, Free 27 pg/mL (<=57); Normetanephrines, Free 158 pg/mL (<=148); Total Metanephrine, Free 185 pg/mL (<=205)
[2025-01-16 09:55] LABS: Plasma Renin Activity 26.07 ng/mL/h (0.25-5.82)
== END 2025-01-08 10:20 | disposition home or self-care (01) ==
LOC: HO.LAB 10:19
PROVIDERS: PCP Family Medicine; Visit Provider Internal Medicine Cardiovascular Disease
DX: G90.1 Familial dysautonomia [Riley-Day] (principal); Z13.21 Encounter for screening for nutritional disorder
CPT/HCPCS: 36415; 82088; 82533; 83835; 84244; 84443

== ENCOUNTER 2025-02-02 13:34 | Outpatient (AMB) | payer OTHER, SELFPAY ==
[2025-02-02 13:38] VITALS: BP 142/90; PULSE 100; O2SAT 97
--- NOTE | 2025-02-02 13:38 | HO.NEPHOV ---
Vital Signs 02/02/25 13:38 02/02/25 13:54 Height 5 ft 5 in BP 142/90 H 130/80 Blood Pressure Location Lt radial Lt brachial Position Sitting Sitting Pulse 100 Pulse Source Pulse Oximeter Pulse Oximetry (%) 97 Oxygen Delivery Method Room Air Intake Visit Reasons: INP: Essential (primary) hypertension Linen Aide Required: No Accompanied by: Self / Same As Patient Allergies oxcarbazepine Allergy (Mild, Verified 02/02/25 13:41) Unknown banana Allergy (Unknown, Verified 02/02/25 13:41) Itching Medication List - Last Reconciled 02/02/25 by Ryan Hayes MD bupropion HCl SR (Wellbutrin SR) 100 mg PO DAILY buspirone 15 mg PO DAILY celecoxib 200 mg PO DAILY lisinopril 10 mg PO DAILY lisinopril 20 mg PO DAILY metformin 750 mg PO DAILY metformin ER 750 mg PO DAILY testosterone cypionate 60 mg IM QWEEK venlafaxine ER 75 mg PO DAILY venlafaxine ER 150 mg PO DAILY HPI Comments Details: - Gisele is a pleasant 34-year-old trans person on Testosterone presenting with hypertension management and elevated renin activity. - Essential Hypertension: Managed with lisinopril 30 mg daily. - Diabetes Mellitus: Diagnosed within the past year, managed with metformin. - Sleep Apnea: Uses CPAP regularly, aiding in symptom management. 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 - Elevated Renin Activity: Elevated levels noted while on lisinopril, no changes planned. Underwent tilt table test in 2023 and resulted negative [facility] Medical History Sleep apnea Obesity HTN (hypertension) Surgical History Hx of oral surgery Family History Father No problems noted. Mother No problems noted. Social History Patient Tobacco Use Status: Former Tobacco user Review of Systems Const Denies fever(s) and Denies weight loss Card Denies chest pain Resp Denies cough and Denies hemoptysis GI Denies abdominal pain, Denies diarrhea and Denies nausea Musc Denies back pain Neuro Denies focal weakness Physical Exam Vital Signs: Last Vital Signs Pulse 100 02/02/25 13:38 BP 130/80 02/02/25 13:54 Pulse Ox 97 02/02/25 13:38 Oxygen Delivery Method Room Air 02/02/25 13:38 Comfortable , Obese Neck supple no JVD. Lungs entry equal no rales. Heart S1-S2 heard no gallop or rub. Abdomen soft nontender. Neuro alert awake oriented. No asterixis. Extremities no edema. Results Reviewed Results Reviewed: Renin Elevated Jovani - Low Assessment & Plan Assessment & Plan (1) HTN (hypertension): Code(s): I10 - Essential (primary) hypertension Category: Medical Plan 1. Essential Hypertension Due to combination of Obesity, Testosterone use and THOMAS - Continue lisinopril 30 mg daily. - Monitor blood pressure at home, aiming for readings below 140 mmHg. Low salt diet weight loss. 2. Diabetes Mellitus - Continue metformin therapy. - Monitor for proteinuria Would benefit from ACEi 3. Sleep Apnea - Continue regular use of CPAP. 4. Av Block 5. Elevated Renin Activity Due to the use of Lisinopril Can stop Lisinopril for 2 weeks and recheck renin to prove the concent. However, I do not see the need to do that at this time IF BP is difficult to control , I would revisit this Orders: Orders Basic Metabolic Panel Today I10 - Essential (primary) hypertension Total Protein Urine Random Today I10 - Essential (primary) hypertension Creatinine Urine Today I10 - Essential (primary) hypertension UA and rflx microscopic Today I10 - Essential (primary) hypertension Patient Instructions: - Continue taking lisinopril 30 mg daily as prescribed. - Monitor your blood pressure at home regularly, aiming for readings below 140 mmHg. - Use your CPAP machine every night to help manage sleep apnea. - Follow up with your sheet roller operator . - Keep an eye on your diet, especially reducing salt intake. - Schedule regular check-ups with your primary care physician to monitor your health conditions. Coding Level of Care Code New Pt Level 4 (16834) Diagnoses HTN (hypertension) I10
[2025-02-02 13:54] VITALS: BP 130/80
--- OUTSIDE RECORDS SUMMARY | 2025-02-02 14:51 | XMS_ITS | Patient Health Record ---
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 Problem Gender identity disorder (08343635) Gender identity disorder, 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 Vital Signs Blood pressure diastolic 10 mm Hg 02/25/2024 Height 20 in 02/25/2024 Blood pressure systolic 20 mm Hg 02/25/2024 Weight 10 lbs 02/25/2024 BMI 17.58 kg/m2 02/25/2024 Encounters Encounter Location Date Provider Diagnosis [address] [place], [place] [id number] 02/25/2024 Bahman Mtz Other gender identity disorders F64.[address] [id number] 02/12/2024 Bahman Mtz [address] [place] [id number] 06/25/2024 Micaela Kim Other gender identity disorders F64.8 and Hormone replacement therapy Z79.[address] [place] [id number] 08/24/2024 Ginny Kim Hormone replacement therapy Z79.890 and Gender identity disorder, unspecified F64.9 [facility] [address] [facility] [address] [place], [place] [id number] 01/18/2025 Ginny Kim Hormone replacement therapy Z79.890 and [...] others Communication of test results Established Patient: 67474 30 Minutes 06/25/2024 Other gender identity disorders (ICD-10 - F64.8) 08/24/2024 Hormone replacement therapy (ICD-10 - Z79.890) 01/18/2025 Hormone replacement therapy (ICD-10 - Z79.890) 01/18/2025 Gender identity disorder, unspecified (ICD-10 - F64.9) 08/24/2024 Gender identity disorder, unspecified (ICD-10 - F64.9) 06/25/2024 Hormone replacement therapy (ICD-10 - Z79.890) Plan Of Treatment Pending Test Test Name Order Date ALT (SGPT) 03/20/2022 AST (SGOT) 03/20/2022 HEMOGLOBIN AND HEMATOCRIT 03/20/2022 TESTOSTERONE, TOTAL (MALES > 15 YRS) Hgb+Hct-[id number] 01/18/2025 Testosterone,All genders-[id number] 01/19/20 25 Next Appt Details Provider Name:Ginny Leslie, 02/18/2025 08:45:00 AM, [address] [facility], [address], [place], [place], [id number], Insurance Providers Payer Name Payer Address Payer Phone Subscriber Number Group Number Insured Name Patient Relationship to Insured Coverage Start Date Coverage End Date [facility] [employer] CLAIMS DEPT [address] [place] [id number] Gisele Wright Self - patient is the [...]
--- OUTSIDE RECORDS SUMMARY | 2025-02-02 14:52 | XMS_ITS | Encounter Summary ---
Author Organization [facility] Address [address] [place] [address] Phone Care Team Providers Care Bicycle Taxi Driver Name Role Phone Dee Dee Ozuna MD Primary Care Provider Encounter Details Date Type Department Care Team ([facility] st Contact Info) Description 01/16/2024 Procedure Pass [facility] [address] [place] [address] Social History Tobacco Use Types Packs/Day Years [...] on filedocumented in this encounter Care Teams Bicycle Taxi Driver Relationship Specialty Start Date End Date Dee Dee Ozuna MD [address] [place] [phone] [email or web address] PCP - General Internal Medicine 08/25/21 documented as of this encounter Additional Source Comments The information contained in this document represents components of the legal health record. It is not the complete legal health record.[facility]
--- OUTSIDE RECORDS SUMMARY | 2025-02-02 14:52 | XMS_ITS | Clinical Summary ---
Author Organization [facility] Address [address] [place] [address] Phone Care Team Providers Care Nuclear Reactor Operator Name Role Phone Dee Dee Ozuna MD [...] Medical Devices Not on file Insurance [employer]ALTH [employer] Care Teams Nuclear Reactor Operator Relationship Specialty Start Date End Date Dee Dee Ozuna MD [address] [place] [phone] [email or web address] PCP - General Internal Medicine 08/25/21 Additional Source Comments The information contained in this document represents components of the legal health record. It is not the complete legal health record.[facility]
--- OUTSIDE RECORDS SUMMARY | 2025-02-02 14:52 | XMS_ITS | Clinical Summary ---
Author Organization [facility] Address [address] [place] [phone] Phone Care Team Providers Care Goodwill Representative Name Role Phone Physician, No Pcp Primary [...] age to complete this topic Insurance [employer] Care Teams Goodwill Representative Relationship Specialty Start Date End Date Physician, No Pcp PCP - General 06/02/24
--- OUTSIDE RECORDS SUMMARY | 2025-02-02 14:52 | XMS_ITS | Encounter Summary ---
Author Organization [facility] Address [address] [place] [phone] Phone Care Team Providers Care Paint Line Supervisor Name Role Phone Dee Dee Ozuna MD Primary Care Provider Reason for Referral * Outpatient Procedure - Closed Specialty Diagnoses / Procedures Referred By Trish sandoval Referred To Contact Radiology Diagnoses Palpitations Procedures Adult Echo TTE Torie Clemons DO [address] [place] [address] Phone: tel: fax: mailto: Referral ID Status Reason Start Date Expiration Date Visits Re quested Visits Authorized [id number] Closed 01/16/2024 01/15/2025 1 1 Encounter Details Date Type Department Care Team (Latest Contact Info) Description 01/16/2024 Transcribe Orders Virtual Department [address] [place] [address] Torie Clemons DO [address] [place] [address] [email or web address] Palpitations (Primary Dx) Social History Tobacco [...] Palpitations documented in this encounter Care Teams Paint Line Supervisor Relationship Specialty Start Date End Date Dee Dee Ozuna MD [address] [place] [address] [email or web address] PCP - General Internal Medicine 08/25/21 documented as of this encounter Additional Source Comments The information contained in this document represents components of the legal health record. It is not the complete legal health record.[facility]
== END 2025-02-02 14:04 | disposition home or self-care (01) ==
LOC: HO.HKA 13:35
PROVIDERS: PCP Family Medicine; Referring Provider Internal Medicine Cardiovascular Disease; Visit Provider Internal Medicine Hypertension Specialist
DX: I10 Essential (primary) hypertension (principal)
CPT/HCPCS: 99204

== ENCOUNTER → 2025-02-05 23:59 | Outpatient (BNV) | payer OTHER, SELFPAY ==
--- NOTE | 2025-02-10 12:14 | MHC.OFFVIS ---
Intake Visit Reasons: remote ILR check- [employer] Allergies oxcarbazepine Allergy (Mild, Verified 02/02/25 13:41) Unknown banana Allergy (Unknown, Verified 02/02/25 13:41) Itching PFSH Medical History Sleep apnea Obesity HTN (hypertension) Surgical History Hx of oral surgery Family History Father No problems noted. Mother No problems noted. Social History Patient Tobacco Use Status: Former Tobacco user Office Procedures Cardiac Device Check Cardiac Device Check Details: Remote implantable loop recorder report generated 02/05/2025. No arrhythmias or pauses noted. Five reported symptoms correlated with sinus rhythm [id number] Cardiac Interrogation, subcut cardiac rhythm monitor Procedure code (CPT) selection complete Assessment & Plan Assessment & Plan (1) Implantable loop recorder present: Code(s): Z95.818 - Presence of other cardiac implants and grafts Category: Medical Plan: See above Coding Level of Care Code Procedure Only Diagnoses Implantable loop recorder present Z95.818 CPT Codes Cardiac Device Check - Cardiac Device 16: [id number] Cardiac Interrogation, subcut cardiac rhythm monitor ([id number])
== END ==
PROVIDERS: PCP Family Medicine; Visit Provider Internal Medicine Cardiovascular Disease
DX: Z45.09 Encounter for adjustment and management of other cardiac device (principal)
CPT/HCPCS: 93298

== ENCOUNTER → 2025-03-07 23:59 | Outpatient (BNV) | payer OTHER, SELFPAY ==
--- NOTE | 2025-03-10 15:14 | MHC.OFFVIS ---
Intake Visit Reasons: remote ILR check- [employer] Allergies oxcarbazepine Allergy (Mild, Verified 02/02/25 13:41) Unknown banana Allergy (Unknown, Verified 02/02/25 13:41) Itching PFSH Medical History Sleep apnea Obesity HTN (hypertension) Surgical History Hx of oral surgery Family History Father No problems noted. Mother No problems noted. Social History Patient Tobacco Use Status: Former Tobacco user Office Procedures Cardiac Device Check Cardiac Device Check Details: Remote implantable loop recorder report generated 03/07/2025. No pauses or arrhythmias noted. Patient reported 4 symptoms, 3 of them pounding in his chest correlating with sinus rhythm or sinus tachycardia. One symptom of dizziness lightheadedness correlated with sinus rhythm [id number] Cardiac Interrogation, subcut cardiac rhythm monitor Procedure code (CPT) selection complete Assessment & Plan Assessment & Plan (1) Implantable loop recorder present: Code(s): Z95.818 - Presence of other cardiac implants and grafts Category: Medical Plan: See above Coding Level of Care Code Procedure Only Diagnoses Implantable loop recorder present Z95.818 CPT Codes Cardiac Device Check - Cardiac Device 16: [id number] Cardiac Interrogation, subcut cardiac rhythm monitor ([id number])
== END ==
PROVIDERS: PCP Family Medicine; Visit Provider Internal Medicine Cardiovascular Disease
DX: R00.0 Tachycardia, unspecified (principal); Z95.818 Presence of other cardiac implants and grafts
CPT/HCPCS: 93298

== ENCOUNTER → 2025-04-21 14:57 | Outpatient (BNV) | payer OTHER, SELFPAY | PROVIDERS: PCP Family Medicine; Visit Provider Internal Medicine Cardiovascular Disease | DX: I49.3 Ventricular premature depolarization (principal); R00.0 Tachycardia, unspecified; Z95.818 Presence of other cardiac implants and grafts | CPT/HCPCS: 93298 ==